=== PATIENT | male | born 1945 | race Caucasian/White ===

== ENCOUNTER 2022-03-15 20:04 | Inpatient (IN) ==
[2022-03-16] MEDS ORDERED: Naloxone 0.4 MG/ML INJ IVP PRN (00:55)
[2022-03-16] MEDS ORDERED: 0.9 % Sodium Chloride 1,000 ML ONE (01:00)
[2022-03-16 03:00] LABS: Basophils % 0.2 %; Eosinophils # 0.1 K/mcL (0.0-0.6); Eosinophils % 0.4 %; Hematocrit 21.6 % (37.5-50.1); Hemoglobin 6.8 g/dL (12.9-16.9); Immature Granulocytes % 4.2 % (0-4); Lymphocytes # 1.6 K/mcL (0.6-4.6); Lymphocytes % 7.1 %; Mean Corpuscular HGB Conc 31.5 g/dL (31.6-35.5); Mean Corpuscular Hemoglobin 33.7 pg (28.0-33.3); Mean Corpuscular Volume 106.9 fL (83.0-100.0); Mean Platelet Volume 9.5 fL (9.4-12.4); Monocytes % 3.3 %; Platelet Count 242 K/mcL (140-400); Red Blood Count 2.02 M/mcL (4.19-5.50); Red Cell Distribution Width 20.2 % (11.5-14.5); Segmented Neutrophils % 84.8 %; White Blood Count 22.7 K/mcL (4.3-11.1)
[2022-03-16] MEDS ORDERED: Vancomycin (wt based) 1,000 MG VIAL IVPB SCH (03:00)
[2022-03-16 03:12] LABS: INR 1.5; Prothrombin Time 16.6 Seconds (9.4-12.1)
[2022-03-16 03:15] LABS: Activated Partial Thrombo Time 33.4 Seconds (26.0-36.0)
[2022-03-16 03:20] LABS: Calcium 7.3 mg/dL (8.6-10.3); Phosphorous 1.1 mg/dL (2.7-4.5)
[2022-03-16 03:30] LABS: Basophils # 0.1 K/mcL (0.0-0.2); Monocytes # 0.8 K/mcL (0.0-1.3); Neutrophils # 19.3 K/mcL (1.6-8.9)
[2022-03-16 03:43] LABS: Anisocytosis 2+ (Not Present); Basophilic Stippling 1+ (Not Present); Macrocytosis Present (Not Present); Platelet Estimate Normal (Normal); Polychromasia 1+ (Not Present)
[2022-03-16] MEDS ORDERED: 0.9 % Sodium Chloride 250 ML IVC SCH (03:45)
[2022-03-16 03:48] LABS: Albumin 1.8 g/dL (3.5-5.7); Albumin/Globulin Ratio 0.7 (1.1-2.2); Bilirubin,Direct 0.2 mg/dL (0.0-0.2); Bilirubin,Indirect 0.2 mg/dL (0.0-1.0); Bilirubin,Total 0.4 mg/dL (0.3-1.0); Globulin 2.6 g/dL (2.4-3.5); Total Protein 4.4 g/dL (6.4-8.9)
[2022-03-16 03:57] LABS: VBG HCO3 26 mEq/L (21-27); VBG PCO2 47 mmHg (41-51); VBG PH 7.36 pH Units (7.32-7.42); VBG PO2 153 mmHg (25-50)
[2022-03-16] MEDS ORDERED: Melatonin 3 MG TABLET PO PRN (05:35)
[2022-03-16] MEDS ORDERED: Acetaminophen 325 MG TABLET PO PRN (05:35)
[2022-03-16] MEDS: Ondansetron 4 MG/2 ML VIAL IVP PRN (06:29)
[2022-03-16] MEDS ORDERED: Piperacillin/Tazobactam 3.375 GM in 0.9 % Sodium Chloride Mini Bag 100 ML IVPB SCH (08:00)
[2022-03-16 12:44] LABS: % Iron Saturation 26 % (20-55); Iron 34 mcg/dL (65-175); Transferrin 92 mg/dL (203-362)
[2022-03-16 13:03] LABS: Ferritin > 1500 ng/mL (20-250)
[2022-03-16 13:10] LABS: Folate > 22.3 ng/mL (3.0-16.0); Vitamin B12 703 pg/mL (250-1100)
[2022-03-16 13:36] LABS: Hepatitis B Surface Antibody < 3.10 mIU/mL
[2022-03-16 13:45] LABS: Hepatitis B Surface Antigen Nonreactive (Nonreactive)
[2022-03-16] MEDS ORDERED: *HR* Dextrose 50 % in Water (Syg) 50 ML SYRINGE IVP PRN (13:58)
[2022-03-16] MEDS ORDERED: D5% in Water 1,000 ML IVC PRN (13:58)
[2022-03-16] MEDS ORDERED: Dextrose Gel 15 GM/37.5 ML TUBE PO PRN ×2 (13:58)
[2022-03-16] MEDS ORDERED: Vancomycin 1,250 MG/262.5 ML IV.SOLN IVPB SCH (15:00)
[2022-03-16] MEDS: Torsemide 20 MG TABLET GTUBE SCH (16:14)
[2022-03-16] MEDS ORDERED: Torsemide 20 MG TABLET PO SCH (17:00)
[2022-03-16] MEDS: Insulin LISPRO 300 UNITS/3 ML VIAL SUBQ SCH (19:25)
[2022-03-16] MEDS: Budesonide/Formoterol 80/4.5 1 PUFF INH IH SCH (20:05)
[2022-03-16] MEDS: Piperacillin/Tazobactam 3.375 GM in 0.9 % Sodium Chloride Mini Bag 100 ML IVPB SCH (20:51)
[2022-03-16] MEDS: Melatonin 3 MG TABLET GTUBE PRN (20:52)
[2022-03-17] MEDS: Insulin LISPRO 300 UNITS/3 ML VIAL SUBQ SCH ×4 (00:36→17:45)
[2022-03-17 05:25] LABS: Hemoglobin 8.1 g/dL (12.9-16.9); Mean Platelet Volume 9.4 fL (9.4-12.4)
[2022-03-17 05:27] LABS: Hematocrit 25.1 % (37.5-50.1); Mean Corpuscular HGB Conc 32.3 g/dL (31.6-35.5); Mean Corpuscular Hemoglobin 32.9 pg (28.0-33.3); Platelet Count 245 K/mcL (140-400); Red Blood Count 2.46 M/mcL (4.19-5.50); White Blood Count 27.2 K/mcL (4.3-11.1)
[2022-03-17 05:44] LABS: Calcium 7.3 mg/dL (8.6-10.3); Potassium 3.8 mEq/L (3.5-5.1)
[2022-03-17 06:24] LABS: Eosinophils # 1.1 K/mcL (0.0-0.6); Lymphocytes # 1.1 K/mcL (0.6-4.6)
[2022-03-17 06:25] LABS: Anisocytosis 1+ (Not Present); Basophilic Stippling 1+ (Not Present); Toxic Granulation Present (Not Present)
[2022-03-17 06:26] LABS: Platelet Clumps Few (Not Present); Platelet Estimate Normal (Normal); Poikilocytosis 1+ (Not Present); Polychromasia 1+ (Not Present)
[2022-03-17] MEDS: Budesonide/Formoterol 80/4.5 1 PUFF INH IH SCH ×2 (07:30→20:24)
[2022-03-17] MEDS ORDERED: *HR* Amiodarone 200 MG TABLET PO SCH (09:00)
[2022-03-17] MEDS ORDERED: Metoprolol XL (24 HR) Succ 25 MG TAB.ER.24H PO SCH (09:00)
[2022-03-17] MEDS: Torsemide 20 MG TABLET GTUBE SCH ×2 (09:59→17:27)
[2022-03-17] MEDS: *HR* Amiodarone 200 MG TABLET GTUBE SCH (10:00)
[2022-03-17] MEDS: Piperacillin/Tazobactam 3.375 GM in 0.9 % Sodium Chloride Mini Bag 100 ML IVPB SCH (10:00)
[2022-03-17] MEDS: *HR* FentaNYL PATCH 12 MCG PATCH TD SCH (10:07)
[2022-03-17] MEDS ORDERED: Vancomycin 1,500 MG/265 ML IV.SOLN IVPB ONE ×2 (14:00→16:00)
[2022-03-17] MEDS ORDERED: Cefepime HCl 2,000 MG in 0.9 % Sodium Chloride Mini Bag 100 ML IVPB SCH (16:00)
[2022-03-17] MEDS: Ondansetron 4 MG/2 ML VIAL IVP PRN (17:43)
[2022-03-17] MEDS: Melatonin 3 MG TABLET GTUBE PRN (20:38)
[2022-03-17] MEDS: metroNIDAZOLE 500 MG TABLET GTUBE SCH (20:39)
[2022-03-17] MEDS: Cefepime HCl 2,000 MG in 0.9 % Sodium Chloride Mini Bag 100 ML IVPB SCH (20:39)
[2022-03-17] MEDS ORDERED: metroNIDAZOLE 500 MG TABLET PO SCH (21:00)
[2022-03-18] MEDS: Insulin LISPRO 300 UNITS/3 ML VIAL SUBQ SCH ×4 (00:12→17:03)
[2022-03-18 05:23] LABS: Hematocrit 26.7 % (37.5-50.1); Hemoglobin 8.4 g/dL (12.9-16.9); Mean Corpuscular HGB Conc 31.5 g/dL (31.6-35.5); Mean Corpuscular Hemoglobin 32.3 pg (28.0-33.3); Mean Corpuscular Volume 102.7 fL (83.0-100.0); Mean Platelet Volume 9.5 fL (9.4-12.4); Platelet Count 254 K/mcL (140-400); Red Cell Distribution Width 22.9 % (11.5-14.5); White Blood Count 24.8 K/mcL (4.3-11.1)
[2022-03-18 05:29] LABS: Calcium 7.3 mg/dL (8.6-10.3); Potassium 3.7 mEq/L (3.5-5.1)
[2022-03-18] MEDS: Cefepime HCl 2,000 MG in 0.9 % Sodium Chloride Mini Bag 100 ML IVPB SCH ×2 (07:44→19:42)
[2022-03-18] MEDS: Budesonide/Formoterol 80/4.5 1 PUFF INH IH SCH ×2 (07:45→21:45)
[2022-03-18] MEDS: metroNIDAZOLE 500 MG TABLET GTUBE SCH ×3 (07:46→19:43)
[2022-03-18] MEDS: Torsemide 20 MG TABLET GTUBE SCH ×2 (07:46→15:27)
[2022-03-18] MEDS: *HR* Amiodarone 200 MG TABLET GTUBE SCH (07:46)
[2022-03-18] MEDS: Ondansetron 4 MG/2 ML VIAL IVP PRN ×2 (13:46→22:15)
[2022-03-18] MEDS ORDERED: Vancomycin 1,250 MG/262.5 ML IV.SOLN IVPB ONE (15:28)
[2022-03-18 23:05] LABS: Calcium 7.3 mg/dL (8.6-10.3); Potassium 3.7 mEq/L (3.5-5.1)
[2022-03-18 23:19] LABS: Troponin I 0.06 ng/mL (< 0.04)
[2022-03-19 00:54] LABS: Basophils # 0.1 K/mcL (0.0-0.2); Basophils % 0.3 %; Eosinophils # 0.2 K/mcL (0.0-0.6); Eosinophils % 0.8 %; Hematocrit 25.7 % (37.5-50.1); Hemoglobin 8.1 g/dL (12.9-16.9); Immature Granulocytes % 4.4 % (0-4); Lymphocytes # 1.8 K/mcL (0.6-4.6); Lymphocytes % 7.3 %; Mean Corpuscular HGB Conc 31.5 g/dL (31.6-35.5); Mean Corpuscular Hemoglobin 32.8 pg (28.0-33.3); Mean Platelet Volume 9.4 fL (9.4-12.4); Monocytes # 0.9 K/mcL (0.0-1.3); Monocytes % 3.9 %; Neutrophils # 20.1 K/mcL (1.6-8.9); Nucleated Red Blood Cells 0.2 /100 WBC (0); Platelet Count 238 K/mcL (140-400); Red Blood Count 2.47 M/mcL (4.19-5.50); Red Cell Distribution Width 22.5 % (11.5-14.5); Segmented Neutrophils % 83.3 %; White Blood Count 24.1 K/mcL (4.3-11.1)
[2022-03-19] MEDS: Insulin LISPRO 300 UNITS/3 ML VIAL SUBQ SCH ×5 (00:55→23:24)
[2022-03-19 01:08] LABS: Calcium 7.2 mg/dL (8.6-10.3); Potassium 3.6 mEq/L (3.5-5.1)
[2022-03-19 07:28] LABS: Bilirubin,Urine Negative (Negative); Blood,Urine Moderate (Negative); Clarity,Urine Clear (Clear); Color,Urine Yellow (Yellow); Glucose,Urine (UA) Normal (Normal); Ketones,Urine Negative (Negative); Leukocyte Esterase,Urine Large (Negative); Nitrite,Urine Negative (Negative); Protein,Urine 100 mg/dL (Neg-Trace); Specific Gravity,Urine >= 1.030 (1.010-1.025); Urobilinogen,Urine Normal (Normal)
[2022-03-19 07:30] LABS: Creatinine,Urine 51 mg/dL
[2022-03-19 07:35] LABS: Bacteria,Urine Many per hpf (None-Few); WBC,Urine 50-100 per hpf (0-3)
[2022-03-19] MEDS: Budesonide/Formoterol 80/4.5 1 PUFF INH IH SCH ×2 (08:20→21:42)
[2022-03-19] MEDS: *HR* Amiodarone 200 MG TABLET GTUBE SCH (08:45)
[2022-03-19] MEDS: Torsemide 20 MG TABLET GTUBE SCH ×2 (08:45→15:11)
[2022-03-19] MEDS: Cefepime HCl 2,000 MG in 0.9 % Sodium Chloride Mini Bag 100 ML IVPB SCH ×2 (08:45→19:46)
[2022-03-19] MEDS: metroNIDAZOLE 500 MG TABLET GTUBE SCH ×3 (08:45→19:47)
[2022-03-19] MEDS ORDERED: Aspirin 81 MG TAB.CHEW PO SCH (09:45)
[2022-03-19] MEDS: Ondansetron 4 MG/2 ML VIAL IVP PRN ×2 (11:46→19:46)
[2022-03-19] MEDS ORDERED: *HR* OxyCODONE Immed Rel 5 MG TABLET PO PRN (16:00)
[2022-03-19] MEDS ORDERED: Metoclopramide 10 MG/2 ML VIAL IVP PRN (18:11)
[2022-03-19] MEDS: Insulin DETEMIR 100 UNIT/ML X5UNITS SUBQ SCH (20:08)
[2022-03-20] MEDS: Insulin LISPRO 300 UNITS/3 ML VIAL SUBQ SCH ×3 (05:57→18:15)
[2022-03-20 06:25] LABS: Basophils # 0.1 K/mcL (0.0-0.2); Basophils % 0.4 %; Eosinophils # 0.2 K/mcL (0.0-0.6); Eosinophils % 0.7 %; Hematocrit 26.7 % (37.5-50.1); Hemoglobin 8.3 g/dL (12.9-16.9); Immature Granulocytes % 3.8 % (0-4); Lymphocytes # 2.7 K/mcL (0.6-4.6); Lymphocytes % 10.9 %; Mean Corpuscular HGB Conc 31.1 g/dL (31.6-35.5); Mean Corpuscular Hemoglobin 32.7 pg (28.0-33.3); Mean Corpuscular Volume 105.1 fL (83.0-100.0); Mean Platelet Volume 9.7 fL (9.4-12.4); Neutrophils # 19.9 K/mcL (1.6-8.9); Nucleated Red Blood Cells 0.1 /100 WBC (0); Platelet Count 229 K/mcL (140-400); Red Blood Count 2.54 M/mcL (4.19-5.50); Red Cell Distribution Width 22.5 % (11.5-14.5); Segmented Neutrophils % 80.2 %; White Blood Count 24.8 K/mcL (4.3-11.1)
[2022-03-20 06:49] LABS: Calcium 7.6 mg/dL (8.6-10.3); Potassium 3.7 mEq/L (3.5-5.1)
[2022-03-20] MEDS: Budesonide/Formoterol 80/4.5 1 PUFF INH IH SCH ×2 (07:24→20:05)
[2022-03-20] MEDS ORDERED: *HR* OxyCODONE Immed Rel 5 MG TABLET GTUBE PRN (08:38)
[2022-03-20] MEDS: Torsemide 20 MG TABLET GTUBE SCH ×2 (09:32→18:23)
[2022-03-20] MEDS: metroNIDAZOLE 500 MG TABLET GTUBE SCH (09:32)
[2022-03-20] MEDS: *HR* Amiodarone 200 MG TABLET GTUBE SCH (09:32)
[2022-03-20] MEDS: Ondansetron 4 MG/2 ML VIAL IVP PRN (09:33)
[2022-03-20] MEDS: Aspirin 81 MG TAB.CHEW GTUBE SCH (09:33)
[2022-03-20] MEDS: *HR* FentaNYL PATCH 12 MCG PATCH TD SCH (11:41)
[2022-03-20] MEDS: *HR* OxyCODONE Immed Rel 5 MG TABLET GTUBE PRN (15:05)
[2022-03-20] MEDS ORDERED: Cefepime HCl 1,000 MG in 0.9 % Sodium Chloride 10 ML IVP SCH (18:00)
[2022-03-20] MEDS: Insulin DETEMIR 100 UNIT/ML X5UNITS SUBQ SCH (22:26)
[2022-03-21] MEDS: Insulin LISPRO 300 UNITS/3 ML VIAL SUBQ SCH ×4 (02:45→18:32)
[2022-03-21] MEDS: *HR* OxyCODONE Immed Rel 5 MG TABLET GTUBE PRN ×4 (06:18→22:06)
[2022-03-21] MEDS: Budesonide/Formoterol 80/4.5 1 PUFF INH IH SCH ×2 (08:08→20:16)
[2022-03-21] MEDS: Aspirin 81 MG TAB.CHEW GTUBE SCH (08:44)
[2022-03-21] MEDS: *HR* Amiodarone 200 MG TABLET GTUBE SCH (08:44)
[2022-03-21] MEDS: Torsemide 20 MG TABLET GTUBE SCH ×2 (08:45→18:31)
[2022-03-21 10:02] LABS: Hematocrit 29.2 % (37.5-50.1); Hemoglobin 9.4 g/dL (12.9-16.9); Mean Corpuscular HGB Conc 32.2 g/dL (31.6-35.5); Mean Corpuscular Hemoglobin 32.8 pg (28.0-33.3); Mean Corpuscular Volume 101.7 fL (83.0-100.0); Mean Platelet Volume 10.1 fL (9.4-12.4); Nucleated Red Blood Cells 0.3 /100 WBC (0); Platelet Count 242 K/mcL (140-400); Red Blood Count 2.87 M/mcL (4.19-5.50); Red Cell Distribution Width 22.7 % (11.5-14.5)
[2022-03-21 10:17] LABS: Albumin 1.9 g/dL (3.5-5.7); Albumin/Globulin Ratio 0.6 (1.1-2.2); Bilirubin,Total 0.5 mg/dL (0.3-1.0); Calcium 7.7 mg/dL (8.6-10.3); Potassium 3.9 mEq/L (3.5-5.1); Total Protein 4.9 g/dL (6.4-8.9)
[2022-03-21 10:39] LABS: White Blood Count 30.8 K/mcL (4.3-11.1)
[2022-03-21 10:43] LABS: Lymphocytes # 2.8 K/mcL (0.6-4.6); Monocytes # 0.6 K/mcL (0.0-1.3); Neutrophils # 27.1 K/mcL (1.6-8.9)
[2022-03-21 10:44] LABS: Platelet Estimate Normal (Normal); Polychromasia 1+ (Not Present); Toxic Granulation Present (Not Present)
[2022-03-21 10:46] LABS: Anisocytosis 1+ (Not Present); Poikilocytosis 1+ (Not Present)
[2022-03-21 10:47] LABS: Total Volume 24 Hour,Urine 0.59 Liters (0.80-1.80)
[2022-03-21 11:54] LABS: Total Volume 24 Hour,Urine 0.59 Liters (0.80-1.80)
[2022-03-21] MEDS: Ondansetron 4 MG/2 ML VIAL IVP PRN (15:12)
[2022-03-21] MEDS: Melatonin 3 MG TABLET GTUBE PRN (22:06)
[2022-03-21] MEDS: Insulin DETEMIR 100 UNIT/ML X5UNITS SUBQ SCH (22:16)
[2022-03-22] MEDS: Ondansetron 4 MG/2 ML VIAL IVP PRN ×2 (00:53→10:26)
[2022-03-22] MEDS ORDERED: Prochlorperazine 10 MG/2 ML VIAL IVP ONE (03:30)
[2022-03-22] MEDS: Insulin LISPRO 300 UNITS/3 ML VIAL SUBQ SCH ×4 (03:43→17:09)
[2022-03-22] MEDS: *HR* OxyCODONE Immed Rel 5 MG TABLET GTUBE PRN ×5 (03:50→21:15)
[2022-03-22] MEDS: Budesonide/Formoterol 80/4.5 1 PUFF INH IH SCH ×2 (07:38→22:17)
[2022-03-22] MEDS: Metoprolol XL (24 HR) Succ 25 MG TAB.ER.24H PO SCH (07:59)
[2022-03-22] MEDS: Aspirin 81 MG TAB.CHEW GTUBE SCH (08:00)
[2022-03-22] MEDS: Torsemide 20 MG TABLET GTUBE SCH ×2 (08:00→17:08)
[2022-03-22] MEDS: *HR* Amiodarone 200 MG TABLET GTUBE SCH (08:00)
[2022-03-22 10:06] LABS: Hematocrit 26.1 % (37.5-50.1); Hemoglobin 8.1 g/dL (12.9-16.9); Mean Corpuscular Hemoglobin 32.7 pg (28.0-33.3); Mean Corpuscular Volume 105.2 fL (83.0-100.0); Mean Platelet Volume 10.4 fL (9.4-12.4); Nucleated Red Blood Cells 0.3 /100 WBC (0); Platelet Count 198 K/mcL (140-400); Red Blood Count 2.48 M/mcL (4.19-5.50); Red Cell Distribution Width 22.9 % (11.5-14.5); White Blood Count 26.5 K/mcL (4.3-11.1)
[2022-03-22 10:34] LABS: Albumin 1.7 g/dL (3.5-5.7); Albumin/Globulin Ratio 0.7 (1.1-2.2); Bilirubin,Total 0.4 mg/dL (0.3-1.0); Calcium 7.4 mg/dL (8.6-10.3); Globulin 2.4 g/dL (2.4-3.5); Potassium 4.2 mEq/L (3.5-5.1); Total Protein 4.1 g/dL (6.4-8.9)
[2022-03-22 10:56] LABS: Lymphocytes # 2.4 K/mcL (0.6-4.6); Neutrophils # 23.6 K/mcL (1.6-8.9); Platelet Estimate Normal (Normal)
[2022-03-22 10:57] LABS: Macrocytosis Present (Not Present); Toxic Granulation Present (Not Present)
[2022-03-22 10:58] LABS: Anisocytosis 2+ (Not Present)
[2022-03-22] MEDS: Insulin DETEMIR 100 UNIT/ML X5UNITS SUBQ SCH (20:16)
[2022-03-23] MEDS: Insulin LISPRO 300 UNITS/3 ML VIAL SUBQ SCH ×4 (00:02→17:48)
[2022-03-23] MEDS: *HR* OxyCODONE Immed Rel 5 MG TABLET GTUBE PRN ×2 (01:39→06:03)
[2022-03-23] MEDS: Budesonide/Formoterol 80/4.5 1 PUFF INH IH SCH ×2 (07:56→20:10)
[2022-03-23 10:01] LABS: Red Blood Count 2.58 M/mcL (4.19-5.50)
[2022-03-23 10:02] LABS: Hematocrit 26.9 % (37.5-50.1); Hemoglobin 8.6 g/dL (12.9-16.9); Mean Corpuscular Hemoglobin 33.3 pg (28.0-33.3); Mean Corpuscular Volume 104.3 fL (83.0-100.0); Mean Platelet Volume 9.9 fL (9.4-12.4); Platelet Count 230 K/mcL (140-400); Red Cell Distribution Width 22.9 % (11.5-14.5); White Blood Count 26.5 K/mcL (4.3-11.1)
[2022-03-23] MEDS: Torsemide 20 MG TABLET GTUBE SCH ×2 (10:10→18:18)
[2022-03-23] MEDS: Aspirin 81 MG TAB.CHEW GTUBE SCH (10:10)
[2022-03-23] MEDS: Metoprolol XL (24 HR) Succ 25 MG TAB.ER.24H PO SCH ×2 (10:15→13:11)
[2022-03-23] MEDS: *HR* Amiodarone 200 MG TABLET GTUBE SCH (10:16)
[2022-03-23] MEDS ORDERED: *HR* Midazolam HCl 2 MG/2 ML VIAL ONE (10:26)
[2022-03-23] MEDS ORDERED: *HR* FentaNYL (PF) 100 MCG/2 ML VIAL ONE (10:26)
[2022-03-23] MEDS ORDERED: *HR* Propofol 200 MG/20 ML VIAL IVP ONE (10:27)
[2022-03-23 10:29] LABS: Calcium 7.7 mg/dL (8.6-10.3)
[2022-03-23] MEDS ORDERED: Lidocaine -MPF 2% 5 ML VIAL ONE (10:30)
[2022-03-23] MEDS ORDERED: Albumin Human 5% 0 GM/0 ML IV.SOLN ONE (10:33)
[2022-03-23] MEDS ORDERED: Promethazine 6.25 MG in Water for inj. (sterile) 20 ML IVPB PRN (10:44)
[2022-03-23] MEDS ORDERED: *HR* HYDROmorphone PF 0.5 MG/0.5 ML SYRINGE IVP PRN (10:44)
[2022-03-23] MEDS ORDERED: *HR* OxyCODONE Immed Rel 5 MG TABLET PO PRN (10:44)
[2022-03-23] MEDS ORDERED: Ondansetron 4 MG/2 ML VIAL IVP PRN (10:44)
[2022-03-23] MEDS ORDERED: Vancomycin 1,000 MG VIAL ONE (10:58)
[2022-03-23] MEDS: *HR* FentaNYL PATCH 12 MCG PATCH TD SCH (13:28)
[2022-03-23] MEDS ORDERED: Vancomycin 1,000 MG, Sodium Chloride IRRigation 1,000 ML IR ONE (15:40)
[2022-03-23] MEDS ORDERED: Tolvaptan 15 MG TABLET GTUBE ONE (16:30)
[2022-03-23] MEDS: Lactobacillus 1 EACH CAP.SPRINK GTUBE SCH (20:00)
[2022-03-23] MEDS: Insulin DETEMIR 100 UNIT/ML X5UNITS SUBQ SCH (20:04)
[2022-03-24] MEDS: Insulin LISPRO 300 UNITS/3 ML VIAL SUBQ SCH ×4 (00:02→19:00)
[2022-03-24 05:04] LABS: Hematocrit 25.5 % (37.5-50.1); Hemoglobin 8.2 g/dL (12.9-16.9); Mean Corpuscular HGB Conc 32.2 g/dL (31.6-35.5); Mean Corpuscular Hemoglobin 33.5 pg (28.0-33.3); Mean Corpuscular Volume 104.1 fL (83.0-100.0); Mean Platelet Volume 10.2 fL (9.4-12.4); Platelet Count 224 K/mcL (140-400); Red Blood Count 2.45 M/mcL (4.19-5.50); Red Cell Distribution Width 23.3 % (11.5-14.5); White Blood Count 22.4 K/mcL (4.3-11.1)
[2022-03-24 05:24] LABS: Albumin 1.9 g/dL (3.5-5.7); Albumin/Globulin Ratio 0.7 (1.1-2.2); Bilirubin,Total 0.4 mg/dL (0.3-1.0); Calcium 7.7 mg/dL (8.6-10.3); Globulin 2.7 g/dL (2.4-3.5); Magnesium 2.3 mg/dL (1.6-2.6); Phosphorous 2.3 mg/dL (2.7-4.5); Potassium 3.3 mEq/L (3.5-5.1); Total Protein 4.6 g/dL (6.4-8.9)
[2022-03-24] MEDS: Ondansetron 4 MG/2 ML VIAL IVP PRN ×2 (05:42→22:24)
[2022-03-24] MEDS: Budesonide/Formoterol 80/4.5 1 PUFF INH IH SCH ×2 (07:55→22:21)
[2022-03-24] MEDS: Aspirin 81 MG TAB.CHEW GTUBE SCH (09:23)
[2022-03-24] MEDS: Torsemide 20 MG TABLET GTUBE SCH (09:23)
[2022-03-24] MEDS: Lactobacillus 1 EACH CAP.SPRINK GTUBE SCH ×2 (09:23→20:59)
[2022-03-24] MEDS: *HR* Amiodarone 200 MG TABLET GTUBE SCH (09:23)
[2022-03-24] MEDS ORDERED: Tolvaptan 15 MG TABLET PO ONE (11:58)
[2022-03-24 14:41] LABS: Calcium 7.8 mg/dL (8.6-10.3); Potassium 3.9 mEq/L (3.5-5.1)
[2022-03-24] MEDS: Furosemide 40 MG TABLET PO SCH (18:59)
[2022-03-24] MEDS: Insulin DETEMIR 100 UNIT/ML X5UNITS SUBQ SCH (20:58)
[2022-03-25] MEDS: Insulin LISPRO 300 UNITS/3 ML VIAL SUBQ SCH ×4 (00:37→18:10)
[2022-03-25 02:02] LABS: Hematocrit 27.2 % (37.5-50.1); Hemoglobin 8.6 g/dL (12.9-16.9); Mean Corpuscular HGB Conc 31.6 g/dL (31.6-35.5); Mean Corpuscular Hemoglobin 32.8 pg (28.0-33.3); Mean Corpuscular Volume 103.8 fL (83.0-100.0); Mean Platelet Volume 10.1 fL (9.4-12.4); Platelet Count 215 K/mcL (140-400); Red Blood Count 2.62 M/mcL (4.19-5.50); Red Cell Distribution Width 23.3 % (11.5-14.5); White Blood Count 20.4 K/mcL (4.3-11.1)
[2022-03-25 02:16] LABS: Calcium 7.8 mg/dL (8.6-10.3); Potassium 3.3 mEq/L (3.5-5.1)
[2022-03-25] MEDS ORDERED: Potassium Chloride Elixir 20 MEQ/15 ML UDC GTUBE ONE (07:48)
[2022-03-25] MEDS: Budesonide/Formoterol 80/4.5 1 PUFF INH IH SCH ×2 (07:53→19:47)
[2022-03-25] MEDS: Lactobacillus 1 EACH CAP.SPRINK GTUBE SCH ×2 (10:46→19:30)
[2022-03-25] MEDS: Furosemide 40 MG TABLET PO SCH ×2 (10:46→16:06)
[2022-03-25] MEDS: Aspirin 81 MG TAB.CHEW GTUBE SCH (10:46)
[2022-03-25] MEDS: *HR* Amiodarone 200 MG TABLET GTUBE SCH (10:47)
[2022-03-25] MEDS: Insulin DETEMIR 100 UNIT/ML X5UNITS SUBQ SCH (19:30)
[2022-03-26] MEDS: Insulin LISPRO 300 UNITS/3 ML VIAL SUBQ SCH ×4 (00:36→17:39)
[2022-03-26 02:01] LABS: Hematocrit 26.7 % (37.5-50.1); Hemoglobin 8.5 g/dL (12.9-16.9); Mean Corpuscular HGB Conc 31.8 g/dL (31.6-35.5); Mean Corpuscular Hemoglobin 33.7 pg (28.0-33.3); Mean Platelet Volume 9.7 fL (9.4-12.4); Platelet Count 179 K/mcL (140-400); Red Blood Count 2.52 M/mcL (4.19-5.50); Red Cell Distribution Width 23.2 % (11.5-14.5)
[2022-03-26 02:43] LABS: Calcium 7.9 mg/dL (8.6-10.3); Phosphorous 2.4 mg/dL (2.7-4.5); Potassium 3.3 mEq/L (3.5-5.1)
[2022-03-26] MEDS: Budesonide/Formoterol 80/4.5 1 PUFF INH IH SCH ×2 (10:27→20:01)
[2022-03-26] MEDS: Aspirin 81 MG TAB.CHEW GTUBE SCH (11:01)
[2022-03-26] MEDS: *HR* Amiodarone 200 MG TABLET GTUBE SCH (11:01)
[2022-03-26] MEDS: Lactobacillus 1 EACH CAP.SPRINK GTUBE SCH ×2 (11:01→20:44)
[2022-03-26] MEDS: *HR* FentaNYL PATCH 12 MCG PATCH TD SCH (11:02)
[2022-03-26] MEDS: Furosemide 40 MG TABLET PO SCH ×2 (11:02→17:39)
[2022-03-26] MEDS: Ondansetron 4 MG/2 ML VIAL IVP PRN (17:56)
[2022-03-26] MEDS: Insulin DETEMIR 100 UNIT/ML X5UNITS SUBQ SCH (20:44)
[2022-03-26] MEDS ORDERED: Prochlorperazine 10 MG/2 ML VIAL IVP ONE (21:39)
[2022-03-27] MEDS: Insulin LISPRO 300 UNITS/3 ML VIAL SUBQ SCH ×4 (00:11→17:08)
[2022-03-27 03:00] LABS: Basophils % 0.2 %; Eosinophils # 0.1 K/mcL (0.0-0.6); Eosinophils % 0.8 %; Hematocrit 27.4 % (37.5-50.1); Hemoglobin 8.6 g/dL (12.9-16.9); Immature Granulocytes % 1.8 % (0-4); Lymphocytes # 1.6 K/mcL (0.6-4.6); Mean Corpuscular HGB Conc 31.4 g/dL (31.6-35.5); Mean Corpuscular Hemoglobin 33.5 pg (28.0-33.3); Mean Corpuscular Volume 106.6 fL (83.0-100.0); Mean Platelet Volume 10.5 fL (9.4-12.4); Monocytes # 0.7 K/mcL (0.0-1.3); Monocytes % 4.2 %; Neutrophils # 13.1 K/mcL (1.6-8.9); Nucleated Red Blood Cells 0.2 /100 WBC (0); Platelet Count 165 K/mcL (140-400); Red Blood Count 2.57 M/mcL (4.19-5.50); Red Cell Distribution Width 23.4 % (11.5-14.5); White Blood Count 15.8 K/mcL (4.3-11.1)
[2022-03-27 03:15] LABS: Potassium 3.5 mEq/L (3.5-5.1)
[2022-03-27 03:42] LABS: Anisocytosis 3+ (Not Present); Burr Cells 1+ (Not Present); Platelet Estimate Normal (Normal)
[2022-03-27] MEDS: Ondansetron 4 MG/2 ML VIAL IVP PRN (05:32)
[2022-03-27] MEDS: Budesonide/Formoterol 80/4.5 1 PUFF INH IH SCH ×2 (07:23→19:56)
[2022-03-27] MEDS: Lactobacillus 1 EACH CAP.SPRINK GTUBE SCH ×2 (09:06→21:47)
[2022-03-27] MEDS: *HR* Amiodarone 200 MG TABLET GTUBE SCH (09:06)
[2022-03-27] MEDS: Aspirin 81 MG TAB.CHEW GTUBE SCH (09:06)
[2022-03-27] MEDS: Furosemide 40 MG TABLET PO SCH (09:07)
[2022-03-27 09:33] LABS: Cystatin C 3.8 mg/L (0.5-1.2)
[2022-03-27] MEDS: Furosemide Oral Soln 40 MG/4 ML UDC GTUBE SCH (17:07)
[2022-03-27] MEDS: Insulin DETEMIR 100 UNIT/ML X5UNITS SUBQ SCH (21:48)
[2022-03-28] MEDS: Insulin LISPRO 300 UNITS/3 ML VIAL SUBQ SCH ×4 (00:59→17:47)
[2022-03-28 05:14] LABS: Magnesium 2.3 mg/dL (1.6-2.6); Phosphorous 2.1 mg/dL (2.7-4.5)
[2022-03-28 05:19] LABS: Potassium 4.1 mEq/L (3.5-5.1)
[2022-03-28] MEDS: Budesonide/Formoterol 80/4.5 1 PUFF INH IH SCH ×2 (07:49→20:39)
[2022-03-28] MEDS: Lactobacillus 1 EACH CAP.SPRINK GTUBE SCH ×2 (09:16→21:17)
[2022-03-28] MEDS: *HR* Amiodarone 200 MG TABLET GTUBE SCH (09:16)
[2022-03-28] MEDS: Furosemide Oral Soln 40 MG/4 ML UDC GTUBE SCH ×2 (09:16→17:47)
[2022-03-28] MEDS: Potassium Chloride Elixir 20 MEQ/15 ML UDC GTUBE SCH (09:17)
[2022-03-28] MEDS: Aspirin 81 MG TAB.CHEW GTUBE SCH (09:17)
[2022-03-28 10:03] LABS: Basophils % 0.2 %; Eosinophils # 0.1 K/mcL (0.0-0.6); Eosinophils % 0.8 %; Hematocrit 28.5 % (37.5-50.1); Hemoglobin 8.7 g/dL (12.9-16.9); Immature Granulocytes % 1.7 % (0-4); Lymphocytes # 2.1 K/mcL (0.6-4.6); Lymphocytes % 16.2 %; Mean Corpuscular HGB Conc 30.5 g/dL (31.6-35.5); Mean Corpuscular Hemoglobin 32.8 pg (28.0-33.3); Mean Corpuscular Volume 107.5 fL (83.0-100.0); Mean Platelet Volume 10.7 fL (9.4-12.4); Monocytes # 0.7 K/mcL (0.0-1.3); Monocytes % 5.6 %; Neutrophils # 9.9 K/mcL (1.6-8.9); Nucleated Red Blood Cells 0.2 /100 WBC (0); Platelet Count 176 K/mcL (140-400); Red Blood Count 2.65 M/mcL (4.19-5.50); Red Cell Distribution Width 23.7 % (11.5-14.5); Segmented Neutrophils % 75.5 %; White Blood Count 13.1 K/mcL (4.3-11.1)
[2022-03-28 10:35] LABS: Anisocytosis 1+ (Not Present); Platelet Estimate Normal (Normal)
[2022-03-28] MEDS: *HR* FentaNYL PATCH 25 MCG PATCH TD SCH (11:27)
[2022-03-28] MEDS: *HR* Heparin 5,000 UNIT/ML VIAL SQ SCH (21:17)
[2022-03-28] MEDS: Melatonin 3 MG TABLET GTUBE PRN (21:17)
[2022-03-28] MEDS: Insulin DETEMIR 100 UNIT/ML X5UNITS SUBQ SCH (21:34)
[2022-03-29] MEDS: Insulin LISPRO 300 UNITS/3 ML VIAL SUBQ SCH ×4 (05:03→17:44)
[2022-03-29] MEDS: *HR* Heparin 5,000 UNIT/ML VIAL SQ SCH ×3 (05:03→20:58)
[2022-03-29 06:06] LABS: Basophils % 0.1 %; Eosinophils # 0.1 K/mcL (0.0-0.6); Eosinophils % 0.9 %; Hemoglobin 8.3 g/dL (12.9-16.9); Immature Granulocytes % 0.9 % (0-4); Lymphocytes % 15.8 %; Mean Corpuscular HGB Conc 30.7 g/dL (31.6-35.5); Mean Corpuscular Hemoglobin 33.5 pg (28.0-33.3); Mean Corpuscular Volume 108.9 fL (83.0-100.0); Mean Platelet Volume 10.6 fL (9.4-12.4); Monocytes # 0.7 K/mcL (0.0-1.3); Monocytes % 5.3 %; Neutrophils # 9.8 K/mcL (1.6-8.9); Platelet Count 154 K/mcL (140-400); Red Blood Count 2.48 M/mcL (4.19-5.50); Red Cell Distribution Width 23.1 % (11.5-14.5); White Blood Count 12.7 K/mcL (4.3-11.1)
[2022-03-29 06:51] LABS: Anisocytosis 2+ (Not Present)
[2022-03-29 06:52] LABS: Platelet Estimate Normal (Normal)
[2022-03-29] MEDS: Budesonide/Formoterol 80/4.5 1 PUFF INH IH SCH ×2 (07:43→22:46)
[2022-03-29] MEDS: Furosemide Oral Soln 40 MG/4 ML UDC GTUBE SCH ×2 (08:45→17:44)
[2022-03-29] MEDS: Lactobacillus 1 EACH CAP.SPRINK GTUBE SCH ×2 (08:45→20:55)
[2022-03-29] MEDS: Aspirin 81 MG TAB.CHEW GTUBE SCH (08:45)
[2022-03-29] MEDS: *HR* Amiodarone 200 MG TABLET GTUBE SCH (08:45)
[2022-03-29] MEDS: Ondansetron 4 MG/2 ML VIAL IVP PRN (08:53)
[2022-03-29] MEDS: Potassium Chloride Elixir 20 MEQ/15 ML UDC GTUBE SCH (11:46)
[2022-03-29] MEDS: Melatonin 3 MG TABLET GTUBE PRN (20:55)
[2022-03-29] MEDS: Insulin DETEMIR 100 UNIT/ML X5UNITS SUBQ SCH (20:56)
[2022-03-30] MEDS: Insulin LISPRO 300 UNITS/3 ML VIAL SUBQ SCH ×5 (00:32→23:53)
[2022-03-30 04:02] LABS: Basophils % 0.2 %; Eosinophils # 0.1 K/mcL (0.0-0.6); Hematocrit 26.9 % (37.5-50.1); Hemoglobin 7.8 g/dL (12.9-16.9); Lymphocytes # 2.1 K/mcL (0.6-4.6); Lymphocytes % 17.2 %; Mean Corpuscular Hemoglobin 32.5 pg (28.0-33.3); Mean Corpuscular Volume 112.1 fL (83.0-100.0); Mean Platelet Volume 11.1 fL (9.4-12.4); Monocytes # 0.6 K/mcL (0.0-1.3); Neutrophils # 9.4 K/mcL (1.6-8.9); Nucleated Red Blood Cells 0.2 /100 WBC (0); Platelet Count 173 K/mcL (140-400); Red Cell Distribution Width 23.2 % (11.5-14.5); Segmented Neutrophils % 75.6 %; White Blood Count 12.4 K/mcL (4.3-11.1)
[2022-03-30 04:29] LABS: Calcium 8.1 mg/dL (8.6-10.3); Magnesium 2.4 mg/dL (1.6-2.6); Phosphorous 3.6 mg/dL (2.7-4.5); Potassium 5.6 mEq/L (3.5-5.1)
[2022-03-30 05:22] LABS: Acanthocytes 2+ (Not Present); Macrocytosis Present (Not Present); Platelet Estimate Normal (Normal)
[2022-03-30] MEDS ORDERED: 0.9 % Sodium Chloride 500 ML IVC ONE (06:03)
[2022-03-30] MEDS: *HR* Heparin 5,000 UNIT/ML VIAL SQ SCH ×3 (06:17→22:35)
[2022-03-30] MEDS: Budesonide/Formoterol 80/4.5 1 PUFF INH IH SCH ×2 (08:04→20:10)
[2022-03-30 09:17] LABS: Cystatin C 3.7 mg/L (0.5-1.2)
[2022-03-30] MEDS: Aspirin 81 MG TAB.CHEW GTUBE SCH (11:04)
[2022-03-30] MEDS: Lactobacillus 1 EACH CAP.SPRINK GTUBE SCH ×2 (11:04→22:34)
[2022-03-30] MEDS: Furosemide Oral Soln 40 MG/4 ML UDC GTUBE SCH ×2 (11:05→16:17)
[2022-03-30] MEDS: *HR* Amiodarone 200 MG TABLET GTUBE SCH (11:05)
[2022-03-30] MEDS: Insulin DETEMIR 100 UNIT/ML X5UNITS SUBQ SCH ×2 (11:05→21:48)
[2022-03-30] MEDS ORDERED: Acetaminophen IV 1,000 MG/100 ML BAG IVPB ONE (12:09)
[2022-03-30 12:24] LABS: Calcium 7.9 mg/dL (8.6-10.3)
[2022-03-30] MEDS: SODIUM ZIRCONIUM CYCLOSILICATE 5 GM POWD.PACK PO SCH ×2 (12:38→22:00)
[2022-03-30] MEDS: Doxycycline 100 MG in 0.9 % Sodium Chloride Mini Bag 100 ML IVPB SCH ×2 (13:37→20:25)
[2022-03-30 14:49] LABS: Adenovirus Not Detected (Not Detect); Coronavirus 229E Not Detected (Not Detect); Coronavirus HKU1 Not Detected (Not Detect); Coronavirus NL63 Not Detected (Not Detect); Coronavirus OC43 Not Detected (Not Detect); Human Metapneumovirus Not Detected (Not Detect); Human Rhinovirus/Enterovirus Not Detected (Not Detect); Influenza A Subtype 2009 H1 Not Detected (Not Detect); Influenza B Not Detected (Not Detect); Parainfluenza Virus 1 Not Detected (Not Detect); Parainfluenza Virus 2 Not Detected (Not Detect); Parainfluenza Virus 3 Not Detected (Not Detect); Parainfluenza Virus 4 Not Detected (Not Detect)
[2022-03-30 14:50] LABS: Bordetella Pertussis Not Detected (Not Detect); Chlamydophila pneumoniae Not Detected (Not Detect); Mycoplasma pneumoniae Not Detected (Not Detect); Respiratory Syncytial Virus Not Detected (Not Detect)
[2022-03-30 14:51] LABS: SARS-CoV-2 DETECTED (Not Detect)
[2022-03-30 15:02] LABS: Bilirubin,Urine Negative (Negative); Blood,Urine Moderate (Negative); Clarity,Urine Turbid (Clear); Color,Urine Yellow (Yellow); Glucose,Urine (UA) Normal (Normal); Ketones,Urine 15 mg/dL (Negative); Leukocyte Esterase,Urine Large (Negative); Nitrite,Urine Negative (Negative); Protein,Urine >=300 mg/dL (Neg-Trace); Specific Gravity,Urine >= 1.030 (1.010-1.025); Urobilinogen,Urine Normal (Normal)
[2022-03-30 15:06] LABS: Bacteria,Urine Moderate per hpf (None-Few); WBC,Urine TNTC per hpf (0-3)
[2022-03-30 15:07] LABS: Budding Yeast,Urine Moderate per hpf (None Seen)
[2022-03-30 15:08] LABS: Squamous Epithelial Cell,Urine Few per hpf (None-Few)
[2022-03-30] MEDS ORDERED: Furosemide 40 MG/4 ML VIAL IVP ONE (18:18)
[2022-03-30] MEDS ORDERED: Albumin 25% 25gram/100mL 25 GM/100 ML IV.SOLN IVPB ONE (18:22)
[2022-03-30 18:56] LABS: ABG Base Excess -7 mEq/L (-2 to 3); ABG HCO3 26 mEq/L (21-27); ABG Oxygen Saturation 67 % (95-98); ABG PCO2 110 mmHg (35-45); ABG PH 6.98 pH Units (7.32-7.45); ABG PO2 55 mmHg (85-104); ABG TCO2 29 mEq/L (20-26)
[2022-03-31 03:47] LABS: Albumin 2.6 g/dL (3.5-5.7); Albumin/Globulin Ratio 0.9 (1.1-2.2); Bilirubin,Direct 0.1 mg/dL (0.0-0.2); Bilirubin,Indirect 0.3 mg/dL (0.0-1.0); Bilirubin,Total 0.4 mg/dL (0.3-1.0); Magnesium 2.6 mg/dL (1.6-2.6); Phosphorous 5.5 mg/dL (2.7-4.5); Total Protein 5.6 g/dL (6.4-8.9)
[2022-03-31 03:54] LABS: Hematocrit 25.7 % (37.5-50.1); Hemoglobin 7.7 g/dL (12.9-16.9); Mean Corpuscular Hemoglobin 33.2 pg (28.0-33.3); Mean Corpuscular Volume 110.8 fL (83.0-100.0); Mean Platelet Volume 11.2 fL (9.4-12.4); Platelet Count 149 K/mcL (140-400); Red Blood Count 2.32 M/mcL (4.19-5.50); Red Cell Distribution Width 21.9 % (11.5-14.5)
[2022-03-31 04:06] LABS: Calcium 8.2 mg/dL (8.6-10.3)
[2022-03-31] MEDS ORDERED: Calcium Gluconate 1gm/50mL 1 GM/50 ML BAG IVPB ONE (04:11)
[2022-03-31] MEDS ORDERED: Insulin Human Regular 10 UNIT in 0.9 % Sodium Chloride 10 ML IV ONE (04:11)
[2022-03-31] MEDS ORDERED: *HR* Dextrose 50 % in Water (Syg) 50 ML SYRINGE IVP ONE (04:11)
[2022-03-31 04:14] LABS: White Blood Count 20.1 K/mcL (4.3-11.1)
[2022-03-31 04:45] LABS: ABG Base Excess -3 mEq/L (-2 to 3); ABG HCO3 24 mEq/L (21-27); ABG Oxygen Saturation 100 % (95-98); ABG PCO2 46 mmHg (35-45); ABG PH 7.32 pH Units (7.32-7.45); ABG PO2 405 mmHg (85-104); ABG TCO2 25 mEq/L (20-26); Blood Gas Modality avaps; Blood Gas VT 500 cc
[2022-03-31] MEDS: Doxycycline 100 MG in 0.9 % Sodium Chloride Mini Bag 100 ML IVPB SCH ×2 (04:56→17:58)
[2022-03-31] MEDS: SODIUM ZIRCONIUM CYCLOSILICATE 5 GM POWD.PACK PO SCH ×3 (04:56→14:06)
[2022-03-31] MEDS: *HR* Heparin 5,000 UNIT/ML VIAL SQ SCH ×3 (04:57→22:50)
[2022-03-31 05:30] LABS: Anisocytosis 1+ (Not Present); Lymphocytes # 1.6 K/mcL (0.6-4.6); Neutrophils # 18.5 K/mcL (1.6-8.9)
[2022-03-31 05:31] LABS: Platelet Estimate Normal (Normal)
[2022-03-31] MEDS: Insulin LISPRO 300 UNITS/3 ML VIAL SUBQ SCH (05:36)
[2022-03-31] MEDS: Budesonide/Formoterol 80/4.5 1 PUFF INH IH SCH ×2 (07:35→20:33)
[2022-03-31] MEDS ORDERED: *HR* Dextrose 50 % in Water (Syg) 50 ML SYRINGE IVP PRN (07:44)
[2022-03-31] MEDS ORDERED: Furosemide 40 MG/4 ML VIAL IVP SCH (09:00)
[2022-03-31] MEDS: D10% in Water 500 ML IVC SCH ×3 (09:05→20:27)
[2022-03-31] MEDS: Calcium Gluconate 1gm/50mL 1 GM/50 ML BAG IVPB SCH ×2 (09:06→10:42)
[2022-03-31] MEDS: Levothyroxine Sodium 100 MCG VIAL IVP SCH (09:16)
[2022-03-31] MEDS: *HR* FentaNYL PATCH 25 MCG PATCH TD SCH (09:16)
[2022-03-31] MEDS: *HR* Amiodarone 200 MG TABLET GTUBE SCH (09:17)
[2022-03-31] MEDS: Lactobacillus 1 EACH CAP.SPRINK GTUBE SCH ×2 (09:17→20:19)
[2022-03-31] MEDS: Aspirin 81 MG TAB.CHEW GTUBE SCH (09:17)
[2022-03-31 10:47] LABS: Calcium 8.5 mg/dL (8.6-10.3); Potassium 6.5 mEq/L (3.5-5.1)
[2022-03-31 19:15] LABS: Calcium 8.6 mg/dL (8.6-10.3); Potassium 5.6 mEq/L (3.5-5.1)
[2022-03-31 23:48] LABS: Calcium 8.3 mg/dL (8.6-10.3); Potassium 5.6 mEq/L (3.5-5.1)
[2022-04-01 02:51] LABS: Basophils % 0.1 %; Hematocrit 25.6 % (37.5-50.1); Hemoglobin 7.7 g/dL (12.9-16.9); Immature Granulocytes % 0.8 % (0-4); Lymphocytes # 1.4 K/mcL (0.6-4.6); Lymphocytes % 12.1 %; Mean Corpuscular HGB Conc 30.1 g/dL (31.6-35.5); Mean Corpuscular Hemoglobin 32.9 pg (28.0-33.3); Mean Corpuscular Volume 109.4 fL (83.0-100.0); Mean Platelet Volume 10.9 fL (9.4-12.4); Monocytes # 0.2 K/mcL (0.0-1.3); Monocytes % 1.5 %; Neutrophils # 10.2 K/mcL (1.6-8.9); Platelet Count 175 K/mcL (140-400); Red Blood Count 2.34 M/mcL (4.19-5.50); Red Cell Distribution Width 21.8 % (11.5-14.5); Segmented Neutrophils % 85.5 %; White Blood Count 11.9 K/mcL (4.3-11.1)
[2022-04-01 03:30] LABS: Calcium 8.1 mg/dL (8.6-10.3); Magnesium 2.5 mg/dL (1.6-2.6); Phosphorous 6.1 mg/dL (2.7-4.5); Potassium 5.4 mEq/L (3.5-5.1)
[2022-04-01] MEDS: *HR* HYDROmorphone (PF) 1 MG/ML SYRINGE IVP PRN ×4 (04:33→21:03)
[2022-04-01] MEDS: Doxycycline 100 MG in 0.9 % Sodium Chloride Mini Bag 100 ML IVPB SCH ×2 (06:14→18:04)
[2022-04-01] MEDS: *HR* Heparin 5,000 UNIT/ML VIAL SQ SCH ×3 (06:21→21:48)
[2022-04-01 07:29] LABS: Calcium 8.2 mg/dL (8.6-10.3); Potassium 5.1 mEq/L (3.5-5.1)
[2022-04-01] MEDS: Aspirin 81 MG TAB.CHEW GTUBE SCH (07:53)
[2022-04-01] MEDS: Furosemide 40 MG/4 ML VIAL IVP SCH (07:54)
[2022-04-01] MEDS: *HR* Amiodarone 200 MG TABLET GTUBE SCH (07:54)
[2022-04-01] MEDS: Lactobacillus 1 EACH CAP.SPRINK GTUBE SCH ×2 (07:55→21:03)
[2022-04-01] MEDS: Levothyroxine Sodium 100 MCG VIAL IVP SCH (07:55)
[2022-04-01] MEDS: Budesonide/Formoterol 80/4.5 1 PUFF INH IH SCH ×2 (08:18→20:17)
[2022-04-01] MEDS ORDERED: Dextrose Gel 15 GM/37.5 ML TUBE PO PRN ×3 (11:00→11:41)
[2022-04-01] MEDS ORDERED: D5% in Water 1,000 ML IVC PRN ×2 (11:00→11:41)
[2022-04-01] MEDS ORDERED: *HR* Dextrose 50 % in Water (Syg) 50 ML SYRINGE IVP PRN ×2 (11:00→11:41)
[2022-04-01 11:25] LABS: Calcium 8.3 mg/dL (8.6-10.3)
[2022-04-01] MEDS ORDERED: Insulin LISPRO 300 UNITS/3 ML VIAL SUBQ SCH ×3 (11:30→21:00)
[2022-04-01] MEDS ORDERED: Vancomycin 1,500 MG/265 ML IV.SOLN IVPB SCH (13:00)
[2022-04-01] MEDS: D10% in Water 500 ML IVC SCH (13:51)
[2022-04-01 15:54] LABS: Calcium 8.2 mg/dL (8.6-10.3); Potassium 4.8 mEq/L (3.5-5.1)
[2022-04-01] MEDS: Insulin LISPRO 300 UNITS/3 ML VIAL SUBQ SCH ×2 (16:24→21:48)
[2022-04-01 19:02] LABS: Calcium 7.8 mg/dL (8.6-10.3); Potassium 4.3 mEq/L (3.5-5.1)
[2022-04-02] MEDS: D10% in Water 500 ML IVC SCH ×3 (00:06→20:49)
[2022-04-02 04:25] LABS: Basophils % 0.1 %; Hematocrit 27.2 % (37.5-50.1); Hemoglobin 8.3 g/dL (12.9-16.9); Immature Granulocytes % 0.9 % (0-4); Lymphocytes % 14.3 %; Mean Corpuscular HGB Conc 30.5 g/dL (31.6-35.5); Mean Corpuscular Hemoglobin 32.8 pg (28.0-33.3); Mean Corpuscular Volume 107.5 fL (83.0-100.0); Mean Platelet Volume 10.7 fL (9.4-12.4); Monocytes # 0.3 K/mcL (0.0-1.3); Monocytes % 4.3 %; Neutrophils # 5.6 K/mcL (1.6-8.9); Platelet Count 196 K/mcL (140-400); Red Blood Count 2.53 M/mcL (4.19-5.50); Red Cell Distribution Width 21.2 % (11.5-14.5); Segmented Neutrophils % 80.4 %; White Blood Count 6.9 K/mcL (4.3-11.1)
[2022-04-02] MEDS: *HR* Heparin 5,000 UNIT/ML VIAL SQ SCH ×3 (05:58→21:52)
[2022-04-02] MEDS: *HR* HYDROmorphone (PF) 1 MG/ML SYRINGE IVP PRN ×3 (05:58→16:13)
[2022-04-02] MEDS: Doxycycline 100 MG in 0.9 % Sodium Chloride Mini Bag 100 ML IVPB SCH ×2 (06:36→18:34)
[2022-04-02] MEDS: Budesonide/Formoterol 80/4.5 1 PUFF INH IH SCH ×2 (07:25→19:42)
[2022-04-02] MEDS: *HR* Amiodarone 200 MG TABLET GTUBE SCH (08:53)
[2022-04-02] MEDS: Lactobacillus 1 EACH CAP.SPRINK GTUBE SCH ×2 (08:53→21:52)
[2022-04-02] MEDS: Furosemide 40 MG/4 ML VIAL IVP SCH (08:54)
[2022-04-02] MEDS: Aspirin 81 MG TAB.CHEW GTUBE SCH (08:54)
[2022-04-02] MEDS: Levothyroxine Sodium 100 MCG VIAL IVP SCH (08:55)
[2022-04-02] MEDS: Insulin LISPRO 300 UNITS/3 ML VIAL SUBQ SCH ×4 (08:56→21:51)
[2022-04-02 12:28] LABS: Calcium 7.7 mg/dL (8.6-10.3); Magnesium 2.4 mg/dL (1.6-2.6); Potassium 3.7 mEq/L (3.5-5.1)
[2022-04-03 04:12] LABS: Hematocrit 26.2 % (37.5-50.1); Hemoglobin 8.2 g/dL (12.9-16.9); Immature Granulocytes % 0.4 % (0-4); Lymphocytes # 0.8 K/mcL (0.6-4.6); Lymphocytes % 8.8 %; Mean Corpuscular HGB Conc 31.3 g/dL (31.6-35.5); Mean Corpuscular Hemoglobin 32.9 pg (28.0-33.3); Mean Corpuscular Volume 105.2 fL (83.0-100.0); Mean Platelet Volume 10.9 fL (9.4-12.4); Monocytes # 0.5 K/mcL (0.0-1.3); Monocytes % 4.9 %; Neutrophils # 7.8 K/mcL (1.6-8.9); Nucleated Red Blood Cells 0.2 /100 WBC (0); Platelet Count 219 K/mcL (140-400); Red Blood Count 2.49 M/mcL (4.19-5.50); Red Cell Distribution Width 20.7 % (11.5-14.5); Segmented Neutrophils % 85.9 %; White Blood Count 9.1 K/mcL (4.3-11.1)
[2022-04-03 04:49] LABS: Calcium 7.3 mg/dL (8.6-10.3); Magnesium 2.3 mg/dL (1.6-2.6); Potassium 3.4 mEq/L (3.5-5.1)
[2022-04-03] MEDS: D10% in Water 500 ML IVC SCH (04:59)
[2022-04-03] MEDS: Doxycycline 100 MG in 0.9 % Sodium Chloride Mini Bag 100 ML IVPB SCH ×2 (05:40→18:02)
[2022-04-03] MEDS: *HR* Heparin 5,000 UNIT/ML VIAL SQ SCH ×3 (05:42→22:33)
[2022-04-03] MEDS: Lactobacillus 1 EACH CAP.SPRINK GTUBE SCH ×2 (09:34→20:55)
[2022-04-03] MEDS: Aspirin 81 MG TAB.CHEW GTUBE SCH (09:34)
[2022-04-03] MEDS: *HR* Amiodarone 200 MG TABLET GTUBE SCH (09:34)
[2022-04-03] MEDS: *HR* FentaNYL PATCH 25 MCG PATCH TD SCH (09:34)
[2022-04-03] MEDS: Levothyroxine Sodium 100 MCG VIAL IVP SCH (09:35)
[2022-04-03] MEDS: Furosemide 40 MG/4 ML VIAL IVP SCH (09:36)
[2022-04-03] MEDS: Calcium Gluconate 1gm/50mL 1 GM/50 ML BAG IVPB SCH ×2 (09:37→11:05)
[2022-04-03] MEDS: Insulin LISPRO 300 UNITS/3 ML VIAL SUBQ SCH ×4 (09:37→20:56)
[2022-04-03] MEDS: Budesonide/Formoterol 80/4.5 1 PUFF INH IH SCH ×2 (10:14→19:56)
[2022-04-03] MEDS: *HR* HYDROmorphone (PF) 1 MG/ML SYRINGE IVP PRN ×2 (11:05→16:26)
[2022-04-04] MEDS: *HR* Heparin 5,000 UNIT/ML VIAL SQ SCH ×3 (05:09→21:53)
[2022-04-04] MEDS: Doxycycline 100 MG in 0.9 % Sodium Chloride Mini Bag 100 ML IVPB SCH ×2 (05:09→18:02)
[2022-04-04 05:23] LABS: Basophils % 0.1 %; Hematocrit 25.3 % (37.5-50.1); Hemoglobin 8.1 g/dL (12.9-16.9); Immature Granulocytes % 0.5 % (0-4); Lymphocytes # 2.1 K/mcL (0.6-4.6); Lymphocytes % 19.4 %; Mean Corpuscular Hemoglobin 33.8 pg (28.0-33.3); Mean Corpuscular Volume 105.4 fL (83.0-100.0); Monocytes # 0.5 K/mcL (0.0-1.3); Neutrophils # 8.1 K/mcL (1.6-8.9); Nucleated Red Blood Cells 0.3 /100 WBC (0); Platelet Count 267 K/mcL (140-400); Red Cell Distribution Width 20.7 % (11.5-14.5); White Blood Count 10.7 K/mcL (4.3-11.1)
[2022-04-04 06:22] LABS: Calcium 6.7 mg/dL (8.6-10.3); Potassium 4.4 mEq/L (3.5-5.1)
[2022-04-04] MEDS: Budesonide/Formoterol 80/4.5 1 PUFF INH IH SCH ×2 (07:43→20:35)
[2022-04-04] MEDS: Insulin LISPRO 300 UNITS/3 ML VIAL SUBQ SCH ×4 (09:30→20:41)
[2022-04-04] MEDS: Furosemide 40 MG/4 ML VIAL IVP SCH (09:35)
[2022-04-04] MEDS: *HR* Amiodarone 200 MG TABLET GTUBE SCH (09:35)
[2022-04-04] MEDS: Lactobacillus 1 EACH CAP.SPRINK GTUBE SCH ×2 (09:36→21:52)
[2022-04-04] MEDS: Aspirin 81 MG TAB.CHEW GTUBE SCH (09:36)
[2022-04-04] MEDS: Levothyroxine Sodium 100 MCG VIAL IVP SCH (09:36)
[2022-04-04] MEDS: Ondansetron 4 MG/2 ML VIAL IVP PRN (10:20)
[2022-04-05 03:42] LABS: Basophils % 0.1 %; Eosinophils # 0.1 K/mcL (0.0-0.6); Hematocrit 25.1 % (37.5-50.1); Hemoglobin 7.9 g/dL (12.9-16.9); Immature Granulocytes % 0.4 % (0-4); Lymphocytes # 2.7 K/mcL (0.6-4.6); Lymphocytes % 25.4 %; Mean Corpuscular HGB Conc 31.5 g/dL (31.6-35.5); Mean Corpuscular Hemoglobin 32.5 pg (28.0-33.3); Mean Corpuscular Volume 103.3 fL (83.0-100.0); Mean Platelet Volume 10.4 fL (9.4-12.4); Monocytes # 0.6 K/mcL (0.0-1.3); Monocytes % 5.3 %; Neutrophils # 7.2 K/mcL (1.6-8.9); Nucleated Red Blood Cells 0.2 /100 WBC (0); Platelet Count 234 K/mcL (140-400); Red Blood Count 2.43 M/mcL (4.19-5.50); Red Cell Distribution Width 20.5 % (11.5-14.5); Segmented Neutrophils % 67.8 %; White Blood Count 10.7 K/mcL (4.3-11.1)
[2022-04-05 04:16] LABS: Albumin 2.2 g/dL (3.5-5.7); Calcium 6.6 mg/dL (8.6-10.3); Potassium 4.4 mEq/L (3.5-5.1)
[2022-04-05] MEDS: *HR* Heparin 5,000 UNIT/ML VIAL SQ SCH ×3 (04:48→20:47)
[2022-04-05] MEDS: Doxycycline 100 MG in 0.9 % Sodium Chloride Mini Bag 100 ML IVPB SCH ×2 (04:49→18:02)
[2022-04-05] MEDS: Ondansetron 4 MG/2 ML VIAL IVP PRN (04:51)
[2022-04-05] MEDS: Budesonide/Formoterol 80/4.5 1 PUFF INH IH SCH ×2 (07:31→22:40)
[2022-04-05] MEDS ORDERED: Ringers Solution, Lactated 500 ML IVC ONE (09:28)
[2022-04-05] MEDS ORDERED: Calcium Gluconate 1gm/50mL 1 GM/50 ML BAG IVPB ONE (09:43)
[2022-04-05] MEDS ORDERED: Albumin 25% 25gram/100mL 25 GM/100 ML IV.SOLN IVPB ONE (10:06)
[2022-04-05] MEDS ORDERED: Ringers Solution, Lactated 250 ML IVC ONE (10:15)
[2022-04-05] MEDS: Insulin LISPRO 300 UNITS/3 ML VIAL SUBQ SCH ×4 (10:17→20:48)
[2022-04-05] MEDS: *HR* HYDROmorphone (PF) 1 MG/ML SYRINGE IVP PRN ×3 (10:40→20:47)
[2022-04-05] MEDS: *HR* Amiodarone 200 MG TABLET GTUBE SCH (10:41)
[2022-04-05] MEDS: Aspirin 81 MG TAB.CHEW GTUBE SCH (16:16)
[2022-04-05] MEDS: Lactobacillus 1 EACH CAP.SPRINK GTUBE SCH ×2 (16:16→20:47)
[2022-04-06] MEDS: *HR* HYDROmorphone (PF) 1 MG/ML SYRINGE IVP PRN ×3 (03:45→15:05)
[2022-04-06 05:06] LABS: Hematocrit 22.6 % (37.5-50.1); Hemoglobin 7.3 g/dL (12.9-16.9); Mean Corpuscular HGB Conc 32.3 g/dL (31.6-35.5); Mean Corpuscular Hemoglobin 33.5 pg (28.0-33.3); Mean Corpuscular Volume 103.7 fL (83.0-100.0); Mean Platelet Volume 10.7 fL (9.4-12.4); Platelet Count 178 K/mcL (140-400); Red Blood Count 2.18 M/mcL (4.19-5.50); Red Cell Distribution Width 19.9 % (11.5-14.5); White Blood Count 10.1 K/mcL (4.3-11.1)
[2022-04-06 05:45] LABS: INR 1.1
[2022-04-06] MEDS: *HR* Heparin 5,000 UNIT/ML VIAL SQ SCH ×3 (06:24→22:30)
[2022-04-06 07:15] LABS: Blood Urea Nitrogen > 390 mg/dL (8-23); Calcium 6.6 mg/dL (8.6-10.3); Carbon Dioxide 18 mEq/L (23-29); Chloride 99 mEq/L (98-107); Glucose 77 mg/dL (70-105); Magnesium 2.1 mg/dL (1.6-2.6); Potassium 4.3 mEq/L (3.5-5.1); Sodium 132 mEq/L (136-145)
[2022-04-06] MEDS: Budesonide/Formoterol 80/4.5 1 PUFF INH IH SCH ×2 (08:12→22:12)
[2022-04-06] MEDS: Aspirin 81 MG TAB.CHEW GTUBE SCH (08:41)
[2022-04-06] MEDS: Lactobacillus 1 EACH CAP.SPRINK GTUBE SCH ×2 (08:41→22:29)
[2022-04-06] MEDS: *HR* Amiodarone 200 MG TABLET GTUBE SCH (08:41)
[2022-04-06] MEDS: Insulin LISPRO 300 UNITS/3 ML VIAL SUBQ SCH ×4 (08:46→22:30)
[2022-04-06] MEDS: *HR* FentaNYL PATCH 25 MCG PATCH TD SCH (08:50)
[2022-04-06 10:02] LABS: Calcium 6.5 mg/dL (8.6-10.3); Potassium 4.3 mEq/L (3.5-5.1)
[2022-04-06] MEDS: Calcium Gluconate 1gm/50mL 1 GM/50 ML BAG IVPB SCH ×2 (14:54→16:05)
[2022-04-06] MEDS ORDERED: ROPIVACAINE/PF/NS 0.25% 1 EACH SYRINGE INTRAART ONE (19:41)
[2022-04-06] MEDS ORDERED: Ketamine HCL *QUVA* 50mg (1mL) SYRINGE ONE (19:58)
[2022-04-06] MEDS ORDERED: *HR* Midazolam HCl 2 MG/2 ML VIAL ONE (19:58)
[2022-04-06] MEDS ORDERED: *HR* Phenylephrine 10 MG/ML VIAL ONE (20:00)
[2022-04-06] MEDS ORDERED: Lidocaine -MPF 2% 5 ML VIAL ONE (20:01)
[2022-04-06] MEDS ORDERED: *HR* Propofol 200 MG/20 ML VIAL IVP ONE (20:03)
[2022-04-06] MEDS ORDERED: EPHEDrine 50 MG/ML VIAL ONE (20:06)
[2022-04-06] MEDS ORDERED: ceFAZolin 2,000 MG in Water for inj. (sterile) 20 ML IVP ONE (21:00)
[2022-04-06] MEDS ORDERED: Naloxone 0.4 MG/ML INJ IVP PRN (22:10)
[2022-04-06] MEDS ORDERED: *HR* Dextrose 50 % in Water (Syg) 50 ML SYRINGE IVP PRN (22:10)
[2022-04-06] MEDS ORDERED: Ondansetron 4 MG/2 ML VIAL IVP PRN (22:10)
[2022-04-06] MEDS ORDERED: D5% in Water 1,000 ML IVC PRN (22:10)
[2022-04-06] MEDS ORDERED: Dextrose Gel 15 GM/37.5 ML TUBE PO PRN ×2 (22:10)
[2022-04-06] MEDS ORDERED: *HR* HYDROmorphone (PF) 1 MG/ML SYRINGE IVP PRN (22:10)
[2022-04-07 03:59] LABS: Basophils % 0.1 %; Hematocrit 19.7 % (37.5-50.1); Hemoglobin 6.3 g/dL (12.9-16.9); Immature Granulocytes % 0.6 % (0-4); Lymphocytes # 0.3 K/mcL (0.6-4.6); Lymphocytes % 2.6 %; Mean Corpuscular Hemoglobin 32.8 pg (28.0-33.3); Mean Corpuscular Volume 102.6 fL (83.0-100.0); Mean Platelet Volume 10.5 fL (9.4-12.4); Monocytes % 0.3 %; Neutrophils # 10.3 K/mcL (1.6-8.9); Platelet Count 154 K/mcL (140-400); Red Blood Count 1.92 M/mcL (4.19-5.50); Red Cell Distribution Width 19.9 % (11.5-14.5); Segmented Neutrophils % 96.4 %; White Blood Count 10.7 K/mcL (4.3-11.1)
[2022-04-07 04:37] LABS: Calcium 6.5 mg/dL (8.6-10.3); Potassium 4.9 mEq/L (3.5-5.1)
[2022-04-07] MEDS: *HR* Heparin 5,000 UNIT/ML VIAL SQ SCH ×3 (07:00→22:29)
[2022-04-07] MEDS: *HR* HYDROmorphone (PF) 1 MG/ML SYRINGE IVP PRN ×3 (10:07→22:15)
[2022-04-07] MEDS: Aspirin 81 MG TAB.CHEW GTUBE SCH (10:08)
[2022-04-07] MEDS: *HR* Amiodarone 200 MG TABLET GTUBE SCH (10:08)
[2022-04-07] MEDS: Lactobacillus 1 EACH CAP.SPRINK GTUBE SCH ×2 (10:08→20:03)
[2022-04-07] MEDS: Insulin LISPRO 300 UNITS/3 ML VIAL SUBQ SCH ×4 (10:15→21:36)
[2022-04-07] MEDS: Budesonide/Formoterol 80/4.5 1 PUFF INH IH SCH ×2 (10:39→19:58)
[2022-04-07] MEDS ORDERED: 0.9 % Sodium Chloride 250 ML ONE (16:41)
[2022-04-08 02:12] LABS: Calcium 6.5 mg/dL (8.6-10.3)
[2022-04-08] MEDS: *HR* HYDROmorphone (PF) 1 MG/ML SYRINGE IVP PRN ×3 (03:59→17:50)
[2022-04-08 04:28] LABS: Basophils % 0.1 %; Eosinophils % 0.1 %; Hematocrit 24.9 % (37.5-50.1); Hemoglobin 8.4 g/dL (12.9-16.9); Immature Granulocytes % 0.8 % (0-4); Lymphocytes # 2.1 K/mcL (0.6-4.6); Lymphocytes % 14.4 %; Mean Corpuscular HGB Conc 33.7 g/dL (31.6-35.5); Mean Corpuscular Hemoglobin 32.1 pg (28.0-33.3); Mean Platelet Volume 10.7 fL (9.4-12.4); Monocytes # 0.5 K/mcL (0.0-1.3); Monocytes % 3.6 %; Neutrophils # 11.7 K/mcL (1.6-8.9); Nucleated Red Blood Cells 0.3 /100 WBC (0); Platelet Count 161 K/mcL (140-400); Red Blood Count 2.62 M/mcL (4.19-5.50); Red Cell Distribution Width 20.6 % (11.5-14.5); White Blood Count 14.4 K/mcL (4.3-11.1)
[2022-04-08] MEDS: *HR* Heparin 5,000 UNIT/ML VIAL SQ SCH ×3 (05:00→22:32)
[2022-04-08] MEDS: Budesonide/Formoterol 80/4.5 1 PUFF INH IH SCH ×2 (08:08→20:23)
[2022-04-08] MEDS: Insulin LISPRO 300 UNITS/3 ML VIAL SUBQ SCH ×4 (08:29→22:32)
[2022-04-08] MEDS: Lactobacillus 1 EACH CAP.SPRINK GTUBE SCH ×2 (09:35→22:31)
[2022-04-08] MEDS: *HR* Amiodarone 200 MG TABLET GTUBE SCH (09:35)
[2022-04-08] MEDS: Aspirin 81 MG TAB.CHEW GTUBE SCH (09:36)
[2022-04-08] MEDS: Sodium Bicarbonate 75 MEQ in 0.45 % Sodium Chloride 1,000 ML IVC SCH (14:32)
[2022-04-08] MEDS: Calcium Acetate 667 MG CAPSULE PO SCH (17:53)
[2022-04-09] MEDS: *HR* Heparin 5,000 UNIT/ML VIAL SQ SCH ×3 (05:49→21:54)
[2022-04-09] MEDS: *HR* HYDROmorphone (PF) 1 MG/ML SYRINGE IVP PRN (05:49)
[2022-04-09 07:24] LABS: Eosinophils # 0.2 K/mcL (0.0-0.6); Eosinophils % 1.2 %; Hematocrit 24.7 % (37.5-50.1); Immature Granulocytes % 1.1 % (0-4); Lymphocytes # 1.9 K/mcL (0.6-4.6); Mean Corpuscular HGB Conc 32.4 g/dL (31.6-35.5); Mean Corpuscular Hemoglobin 31.4 pg (28.0-33.3); Mean Corpuscular Volume 96.9 fL (83.0-100.0); Mean Platelet Volume 11.3 fL (9.4-12.4); Monocytes # 0.6 K/mcL (0.0-1.3); Monocytes % 4.1 %; Neutrophils # 10.9 K/mcL (1.6-8.9); Nucleated Red Blood Cells 0.3 /100 WBC (0); Platelet Count 159 K/mcL (140-400); Red Blood Count 2.55 M/mcL (4.19-5.50); Red Cell Distribution Width 19.8 % (11.5-14.5); Segmented Neutrophils % 79.6 %; White Blood Count 13.7 K/mcL (4.3-11.1)
[2022-04-09] MEDS: Budesonide/Formoterol 80/4.5 1 PUFF INH IH SCH ×2 (07:42→20:06)
[2022-04-09 08:00] LABS: Albumin 2.2 g/dL (3.5-5.7); Calcium 6.4 mg/dL (8.6-10.3); Phosphorous 8.6 mg/dL (2.7-4.5); Potassium 4.6 mEq/L (3.5-5.1)
[2022-04-09] MEDS: Insulin LISPRO 300 UNITS/3 ML VIAL SUBQ SCH ×4 (08:20→21:01)
[2022-04-09] MEDS: *HR* FentaNYL PATCH 25 MCG PATCH TD SCH (09:55)
[2022-04-09] MEDS: Calcium Acetate 667 MG CAPSULE PO SCH ×3 (09:59→14:30)
[2022-04-09] MEDS: Lactobacillus 1 EACH CAP.SPRINK GTUBE SCH ×2 (09:59→21:54)
[2022-04-09] MEDS: Aspirin 81 MG TAB.CHEW GTUBE SCH (09:59)
[2022-04-09] MEDS: *HR* Amiodarone 200 MG TABLET GTUBE SCH (09:59)
[2022-04-09] MEDS: Sodium Bicarbonate 75 MEQ in 0.45 % Sodium Chloride 1,000 ML IVC SCH (14:29)
[2022-04-10] MEDS: *HR* Heparin 5,000 UNIT/ML VIAL SQ SCH ×2 (04:16→19:17)
[2022-04-10] MEDS: *HR* HYDROmorphone (PF) 1 MG/ML SYRINGE IVP PRN ×2 (05:12→22:02)
[2022-04-10] MEDS: Budesonide/Formoterol 80/4.5 1 PUFF INH IH SCH ×2 (07:54→22:55)
[2022-04-10] MEDS ORDERED: Heparin 1,000 UNITS/500 mL 500 ML ONE (08:38)
[2022-04-10] MEDS ORDERED: *HR* Heparin 5,000 UNIT/ML VIAL ONE ×2 (09:23→09:36)
[2022-04-10] MEDS: *HR* Amiodarone 200 MG TABLET GTUBE SCH (10:26)
[2022-04-10] MEDS: Aspirin 81 MG TAB.CHEW GTUBE SCH (10:26)
[2022-04-10] MEDS: Lactobacillus 1 EACH CAP.SPRINK GTUBE SCH ×2 (10:26→22:01)
[2022-04-10] MEDS: Calcium Acetate 667 MG CAPSULE PO SCH ×3 (10:27→19:18)
[2022-04-10] MEDS: Insulin LISPRO 300 UNITS/3 ML VIAL SUBQ SCH ×4 (10:43→22:03)
[2022-04-10] MEDS ORDERED: *HR* Heparin 10,000 UNIT/10 ML VIAL IV PRN (11:36)
[2022-04-10] MEDS ORDERED: 0.9 % Sodium Chloride 250 ML IVC PRN (11:36)
[2022-04-10] MEDS ORDERED: 0.9 % Sodium Chloride 2,000 ML PRIME SCH (11:45)
[2022-04-10] MEDS: Melatonin 3 MG TABLET GTUBE PRN (22:01)
[2022-04-11] MEDS: *HR* Heparin 5,000 UNIT/ML VIAL SQ SCH ×4 (03:35→21:02)
[2022-04-11 03:40] LABS: Basophils % 0.1 %; Eosinophils # 0.1 K/mcL (0.0-0.6); Eosinophils % 0.7 %; Hematocrit 23.1 % (37.5-50.1); Hemoglobin 7.7 g/dL (12.9-16.9); Immature Granulocytes % 0.8 % (0-4); Lymphocytes # 1.3 K/mcL (0.6-4.6); Lymphocytes % 11.6 %; Mean Corpuscular HGB Conc 33.3 g/dL (31.6-35.5); Mean Corpuscular Volume 95.9 fL (83.0-100.0); Monocytes # 0.5 K/mcL (0.0-1.3); Monocytes % 4.6 %; Neutrophils # 9.2 K/mcL (1.6-8.9); Nucleated Red Blood Cells 0.2 /100 WBC (0); Platelet Count 145 K/mcL (140-400); Red Blood Count 2.41 M/mcL (4.19-5.50); Red Cell Distribution Width 18.8 % (11.5-14.5); Segmented Neutrophils % 82.2 %; White Blood Count 11.2 K/mcL (4.3-11.1)
[2022-04-11 03:58] LABS: Calcium 6.8 mg/dL (8.6-10.3); Phosphorous 4.8 mg/dL (2.7-4.5); Potassium 3.7 mEq/L (3.5-5.1)
[2022-04-11 04:45] LABS: Magnesium 1.9 mg/dL (1.6-2.6)
[2022-04-11] MEDS: Insulin LISPRO 300 UNITS/3 ML VIAL SUBQ SCH ×4 (08:07→22:28)
[2022-04-11] MEDS: *HR* Amiodarone 200 MG TABLET GTUBE SCH (08:08)
[2022-04-11] MEDS: Lactobacillus 1 EACH CAP.SPRINK GTUBE SCH ×2 (08:08→21:02)
[2022-04-11] MEDS: Aspirin 81 MG TAB.CHEW GTUBE SCH (08:08)
[2022-04-11] MEDS: Calcium Acetate 667 MG CAPSULE PO SCH ×3 (08:08→12:35)
[2022-04-11] MEDS: *HR* HYDROmorphone (PF) 1 MG/ML SYRINGE IVP PRN ×3 (08:09→21:05)
[2022-04-11] MEDS ORDERED: 0.9 % Sodium Chloride 250 ML IVC PRN (08:13)
[2022-04-11] MEDS ORDERED: *HR* Heparin 10,000 UNIT/10 ML VIAL IV PRN (08:13)
[2022-04-11] MEDS: Budesonide/Formoterol 80/4.5 1 PUFF INH IH SCH ×2 (10:35→20:30)
[2022-04-11] MEDS ORDERED: Albumin 25% 25gram/100mL 25 GM/100 ML IV.SOLN IVPB ONE (17:34)
[2022-04-11] MEDS ORDERED: *HR* HYDROmorphone (PF) 1 MG/ML SYRINGE ONE (17:57)
[2022-04-11] MEDS ORDERED: Albumin 25% 25gram/100mL 25 GM/100 ML IV.SOLN ONE (17:57)
[2022-04-11] MEDS: Melatonin 3 MG TABLET GTUBE PRN (21:04)
[2022-04-12] MEDS: *HR* HYDROmorphone (PF) 1 MG/ML SYRINGE IVP PRN ×5 (01:13→18:39)
[2022-04-12 04:14] LABS: Eosinophils # 0.1 K/mcL (0.0-0.6); Eosinophils % 1.5 %; Hematocrit 21.2 % (37.5-50.1); Hemoglobin 6.9 g/dL (12.9-16.9); Immature Granulocytes % 0.6 % (0-4); Lymphocytes # 0.8 K/mcL (0.6-4.6); Lymphocytes % 9.8 %; Mean Corpuscular HGB Conc 32.5 g/dL (31.6-35.5); Mean Corpuscular Hemoglobin 31.9 pg (28.0-33.3); Mean Corpuscular Volume 98.1 fL (83.0-100.0); Mean Platelet Volume 10.8 fL (9.4-12.4); Monocytes # 0.5 K/mcL (0.0-1.3); Neutrophils # 6.7 K/mcL (1.6-8.9); Nucleated Red Blood Cells 0.2 /100 WBC (0); Platelet Count 132 K/mcL (140-400); Red Blood Count 2.16 M/mcL (4.19-5.50); Red Cell Distribution Width 19.4 % (11.5-14.5); Segmented Neutrophils % 82.1 %; White Blood Count 8.2 K/mcL (4.3-11.1)
[2022-04-12 04:39] LABS: BUN/Creatinine Ratio 27 (6-26); Blood Urea Nitrogen 54 mg/dL (8-23); Calcium 7.5 mg/dL (8.6-10.3); Carbon Dioxide 25 mEq/L (23-29); Chloride 102 mEq/L (98-107); Glucose 127 mg/dL (70-105); Osmolality,Calculated 302 (280-300); Potassium 3.4 mEq/L (3.5-5.1); Sodium 138 mEq/L (136-145)
[2022-04-12] MEDS: *HR* Heparin 5,000 UNIT/ML VIAL SQ SCH ×3 (05:20→20:43)
[2022-04-12] MEDS ORDERED: Potassium Chloride Elixir 20 MEQ/15 ML UDC GTUBE ONE (07:39)
[2022-04-12] MEDS: Budesonide/Formoterol 80/4.5 1 PUFF INH IH SCH ×2 (07:43→22:10)
[2022-04-12] MEDS: Aspirin 81 MG TAB.CHEW GTUBE SCH (09:27)
[2022-04-12] MEDS: Calcium Acetate 667 MG CAPSULE PO SCH ×3 (09:27→17:08)
[2022-04-12] MEDS: Insulin LISPRO 300 UNITS/3 ML VIAL SUBQ SCH ×4 (09:27→20:43)
[2022-04-12] MEDS: *HR* Amiodarone 200 MG TABLET GTUBE SCH (09:27)
[2022-04-12] MEDS: Lactobacillus 1 EACH CAP.SPRINK GTUBE SCH ×2 (09:27→20:43)
[2022-04-12] MEDS: *HR* FentaNYL PATCH 25 MCG PATCH TD SCH (09:28)
[2022-04-12 10:18] LABS: Hematocrit 21.2 % (37.5-50.1); Hemoglobin 6.8 g/dL (12.9-16.9); Mean Corpuscular HGB Conc 32.1 g/dL (31.6-35.5); Mean Corpuscular Hemoglobin 31.6 pg (28.0-33.3); Mean Corpuscular Volume 98.6 fL (83.0-100.0); Mean Platelet Volume 11.4 fL (9.4-12.4); Platelet Count 143 K/mcL (140-400); Red Blood Count 2.15 M/mcL (4.19-5.50); Red Cell Distribution Width 19.3 % (11.5-14.5)
[2022-04-12 11:52] LABS: Iron 74 mcg/dL (65-175); Transferrin < 75 mg/dL (203-362)
[2022-04-12 12:51] LABS: Ferritin > 1500 ng/mL (20-250)
[2022-04-12] MEDS ORDERED: 0.9 % Sodium Chloride 250 ML ONE (16:26)
[2022-04-12] MEDS: Melatonin 3 MG TABLET GTUBE PRN (20:43)
[2022-04-12 21:20] LABS: Hematocrit 25.2 % (37.5-50.1); Hemoglobin 8.3 g/dL (12.9-16.9); Mean Corpuscular HGB Conc 32.9 g/dL (31.6-35.5); Mean Corpuscular Hemoglobin 32.3 pg (28.0-33.3); Mean Corpuscular Volume 98.1 fL (83.0-100.0); Mean Platelet Volume 11.1 fL (9.4-12.4); Platelet Count 144 K/mcL (140-400); Red Blood Count 2.57 M/mcL (4.19-5.50); Red Cell Distribution Width 18.6 % (11.5-14.5); White Blood Count 11.1 K/mcL (4.3-11.1)
[2022-04-13] MEDS: *HR* HYDROmorphone (PF) 1 MG/ML SYRINGE IVP PRN ×4 (02:32→20:35)
[2022-04-13] MEDS: *HR* Heparin 5,000 UNIT/ML VIAL SQ SCH ×3 (05:29→20:32)
[2022-04-13] MEDS: Insulin LISPRO 300 UNITS/3 ML VIAL SUBQ SCH ×4 (07:30→21:04)
[2022-04-13] MEDS: Budesonide/Formoterol 80/4.5 1 PUFF INH IH SCH ×2 (07:40→20:37)
[2022-04-13 07:51] LABS: Calcium 7.5 mg/dL (8.6-10.3); Potassium 3.6 mEq/L (3.5-5.1)
[2022-04-13 08:01] LABS: Hematocrit 22.8 % (37.5-50.1); Hemoglobin 7.6 g/dL (12.9-16.9); Immature Platelets 7.2 % (1.1-6.1); Mean Corpuscular HGB Conc 33.3 g/dL (31.6-35.5); Mean Corpuscular Hemoglobin 32.5 pg (28.0-33.3); Mean Corpuscular Volume 97.4 fL (83.0-100.0); Mean Platelet Volume 11.2 fL (9.4-12.4); Red Blood Count 2.34 M/mcL (4.19-5.50); Red Cell Distribution Width 19.5 % (11.5-14.5); White Blood Count 9.8 K/mcL (4.3-11.1)
[2022-04-13] MEDS: Aspirin 81 MG TAB.CHEW GTUBE SCH (10:16)
[2022-04-13] MEDS: *HR* Amiodarone 200 MG TABLET GTUBE SCH (10:16)
[2022-04-13] MEDS: Lactobacillus 1 EACH CAP.SPRINK GTUBE SCH ×2 (10:16→20:32)
[2022-04-13] MEDS: Calcium Acetate 667 MG CAPSULE PO SCH ×3 (10:22→18:00)
[2022-04-13] MEDS: Melatonin 3 MG TABLET GTUBE PRN (20:32)
[2022-04-14] MEDS ORDERED: Acetaminophen IV 1,000 MG/100 ML BAG IVPB ONE (02:49)
[2022-04-14 02:56] LABS: Hematocrit 23.6 % (37.5-50.1); Hemoglobin 7.6 g/dL (12.9-16.9); Mean Corpuscular HGB Conc 32.2 g/dL (31.6-35.5); Mean Corpuscular Hemoglobin 32.2 pg (28.0-33.3); Mean Platelet Volume 11.6 fL (9.4-12.4); Platelet Count 173 K/mcL (140-400); Red Blood Count 2.36 M/mcL (4.19-5.50); Red Cell Distribution Width 18.9 % (11.5-14.5); White Blood Count 11.2 K/mcL (4.3-11.1)
[2022-04-14 03:17] LABS: Calcium 7.6 mg/dL (8.6-10.3); Potassium 3.7 mEq/L (3.5-5.1)
[2022-04-14 03:18] LABS: Magnesium 1.9 mg/dL (1.6-2.6); Phosphorous 2.9 mg/dL (2.7-4.5)
[2022-04-14] MEDS: *HR* Heparin 5,000 UNIT/ML VIAL SQ SCH ×3 (05:45→21:20)
[2022-04-14] MEDS ORDERED: Cefepime HCl 2,000 MG in 0.9 % Sodium Chloride 10 ML IVP SCH (06:00)
[2022-04-14] MEDS: Insulin LISPRO 300 UNITS/3 ML VIAL SUBQ SCH ×4 (08:06→21:21)
[2022-04-14] MEDS: MetroNIDAZOLE 500 MG/100 ML 500 MG/100 ML BAG IVPB SCH ×3 (08:08→23:29)
[2022-04-14] MEDS ORDERED: *HR* Heparin 10,000 UNIT/10 ML VIAL IV PRN (08:27)
[2022-04-14] MEDS ORDERED: 0.9 % Sodium Chloride 250 ML IVC PRN (08:27)
[2022-04-14] MEDS: Calcium Acetate 667 MG CAPSULE PO SCH ×2 (08:29→14:21)
[2022-04-14] MEDS: Lactobacillus 1 EACH CAP.SPRINK GTUBE SCH ×2 (08:30→21:20)
[2022-04-14] MEDS: *HR* Amiodarone 200 MG TABLET GTUBE SCH (08:32)
[2022-04-14] MEDS: Aspirin 81 MG TAB.CHEW GTUBE SCH (08:35)
[2022-04-14] MEDS: Budesonide/Formoterol 80/4.5 1 PUFF INH IH SCH ×2 (09:17→21:21)
[2022-04-14] MEDS: Metoclopramide 10 MG/10 ML UD.LIQ GTUBE SCH ×2 (16:55→23:29)
[2022-04-14] MEDS ORDERED: Cefepime HCl 1,000 MG in 0.9 % Sodium Chloride Mini Bag 100 ML IVPB SCH (18:00)
[2022-04-15 03:36] LABS: Hematocrit 21.5 % (37.5-50.1); Hemoglobin 6.9 g/dL (12.9-16.9); Mean Corpuscular HGB Conc 32.1 g/dL (31.6-35.5); Mean Corpuscular Hemoglobin 32.2 pg (28.0-33.3); Mean Corpuscular Volume 100.5 fL (83.0-100.0); Platelet Count 177 K/mcL (140-400); Red Blood Count 2.14 M/mcL (4.19-5.50); Red Cell Distribution Width 19.1 % (11.5-14.5); White Blood Count 9.1 K/mcL (4.3-11.1)
[2022-04-15 03:53] LABS: Calcium 7.2 mg/dL (8.6-10.3); Potassium 3.6 mEq/L (3.5-5.1)
[2022-04-15] MEDS: *HR* Heparin 5,000 UNIT/ML VIAL SQ SCH ×3 (05:47→20:53)
[2022-04-15] MEDS: Cefepime HCl 1,000 MG in 0.9 % Sodium Chloride Mini Bag 100 ML IVPB SCH (05:47)
[2022-04-15] MEDS: Metoclopramide 10 MG/10 ML UD.LIQ GTUBE SCH ×3 (05:48→18:02)
[2022-04-15] MEDS: Insulin LISPRO 300 UNITS/3 ML VIAL SUBQ SCH ×3 (09:23→18:02)
[2022-04-15] MEDS: Budesonide/Formoterol 80/4.5 1 PUFF INH IH SCH ×2 (09:35→21:43)
[2022-04-15] MEDS: Aspirin 81 MG TAB.CHEW GTUBE SCH (10:47)
[2022-04-15] MEDS: *HR* Amiodarone 200 MG TABLET GTUBE SCH (10:47)
[2022-04-15] MEDS: *HR* FentaNYL PATCH 25 MCG PATCH TD SCH (10:48)
[2022-04-15] MEDS: Lactobacillus 1 EACH CAP.SPRINK GTUBE SCH ×2 (10:54→20:53)
[2022-04-15] MEDS: MetroNIDAZOLE 500 MG/100 ML 500 MG/100 ML BAG IVPB SCH ×2 (10:54→17:36)
[2022-04-15] MEDS ORDERED: 0.9 % Sodium Chloride 250 ML ONE (14:11)
[2022-04-15] MEDS: Melatonin 3 MG TABLET GTUBE PRN (20:53)
[2022-04-16] MEDS: MetroNIDAZOLE 500 MG/100 ML 500 MG/100 ML BAG IVPB SCH ×3 (00:25→16:34)
[2022-04-16] MEDS: Metoclopramide 10 MG/10 ML UD.LIQ GTUBE SCH ×4 (00:26→16:33)
[2022-04-16] MEDS: Insulin LISPRO 300 UNITS/3 ML VIAL SUBQ SCH ×4 (01:10→18:23)
[2022-04-16] MEDS: Cefepime HCl 1,000 MG in 0.9 % Sodium Chloride Mini Bag 100 ML IVPB SCH (05:12)
[2022-04-16] MEDS: *HR* Heparin 5,000 UNIT/ML VIAL SQ SCH ×3 (05:16→21:06)
[2022-04-16 05:36] LABS: Hematocrit 24.3 % (37.5-50.1); Mean Corpuscular HGB Conc 32.9 g/dL (31.6-35.5); Mean Corpuscular Hemoglobin 32.3 pg (28.0-33.3); Mean Platelet Volume 10.7 fL (9.4-12.4); Platelet Count 172 K/mcL (140-400); Red Blood Count 2.48 M/mcL (4.19-5.50); Red Cell Distribution Width 18.1 % (11.5-14.5); White Blood Count 9.9 K/mcL (4.3-11.1)
[2022-04-16 05:59] LABS: Calcium 7.5 mg/dL (8.6-10.3); Potassium 3.5 mEq/L (3.5-5.1)
[2022-04-16] MEDS: Aspirin 81 MG TAB.CHEW GTUBE SCH (07:59)
[2022-04-16] MEDS: *HR* Amiodarone 200 MG TABLET GTUBE SCH (07:59)
[2022-04-16] MEDS: Lactobacillus 1 EACH CAP.SPRINK GTUBE SCH ×2 (07:59→21:06)
[2022-04-16] MEDS: Budesonide/Formoterol 80/4.5 1 PUFF INH IH SCH ×2 (10:50→23:06)
[2022-04-16] MEDS: metroNIDAZOLE 500 MG TABLET GTUBE SCH (16:39)
[2022-04-16] MEDS: Melatonin 3 MG TABLET GTUBE PRN (21:06)
[2022-04-17] MEDS: Metoclopramide 10 MG/10 ML UD.LIQ GTUBE SCH ×5 (00:28→23:28)
[2022-04-17] MEDS: metroNIDAZOLE 500 MG TABLET GTUBE SCH ×4 (00:28→23:28)
[2022-04-17] MEDS: Insulin LISPRO 300 UNITS/3 ML VIAL SUBQ SCH ×5 (00:29→23:34)
[2022-04-17 03:56] LABS: Basophils % 0.1 %; Eosinophils # 0.2 K/mcL (0.0-0.6); Eosinophils % 2.1 %; Hematocrit 24.6 % (37.5-50.1); Hemoglobin 7.9 g/dL (12.9-16.9); Immature Granulocytes % 1.5 % (0-4); Lymphocytes # 1.5 K/mcL (0.6-4.6); Lymphocytes % 17.7 %; Mean Corpuscular HGB Conc 32.1 g/dL (31.6-35.5); Mean Corpuscular Hemoglobin 31.9 pg (28.0-33.3); Mean Corpuscular Volume 99.2 fL (83.0-100.0); Mean Platelet Volume 10.7 fL (9.4-12.4); Monocytes # 0.4 K/mcL (0.0-1.3); Neutrophils # 6.3 K/mcL (1.6-8.9); Platelet Count 170 K/mcL (140-400); Red Blood Count 2.48 M/mcL (4.19-5.50); Red Cell Distribution Width 18.2 % (11.5-14.5); Segmented Neutrophils % 73.6 %; White Blood Count 8.6 K/mcL (4.3-11.1)
[2022-04-17 04:14] LABS: Calcium 7.3 mg/dL (8.6-10.3); Potassium 3.5 mEq/L (3.5-5.1)
[2022-04-17] MEDS: *HR* Heparin 5,000 UNIT/ML VIAL SQ SCH ×3 (05:30→22:05)
[2022-04-17] MEDS: Cefepime HCl 1,000 MG in 0.9 % Sodium Chloride Mini Bag 100 ML IVPB SCH (05:37)
[2022-04-17] MEDS: Aspirin 81 MG TAB.CHEW GTUBE SCH (07:46)
[2022-04-17] MEDS: Lactobacillus 1 EACH CAP.SPRINK GTUBE SCH ×2 (07:46→22:05)
[2022-04-17] MEDS ORDERED: Potassium Chloride Elixir 20 MEQ/15 ML UDC GTUBE ONE ×2 (07:47→15:09)
[2022-04-17] MEDS: *HR* Amiodarone 200 MG TABLET GTUBE SCH (07:49)
[2022-04-17] MEDS: Budesonide/Formoterol 80/4.5 1 PUFF INH IH SCH ×2 (09:37→22:08)
[2022-04-17] MEDS ORDERED: Potassium Chloride Elixir 20 MEQ/15 ML UDC ONE (15:46)
[2022-04-17] MEDS: Melatonin 3 MG TABLET GTUBE PRN (22:05)
[2022-04-18] MEDS: Metoclopramide 10 MG/10 ML UD.LIQ GTUBE SCH ×3 (04:51→17:37)
[2022-04-18] MEDS: Insulin LISPRO 300 UNITS/3 ML VIAL SUBQ SCH ×3 (04:52→17:38)
[2022-04-18] MEDS: Cefepime HCl 1,000 MG in 0.9 % Sodium Chloride Mini Bag 100 ML IVPB SCH (04:53)
[2022-04-18] MEDS: *HR* Heparin 5,000 UNIT/ML VIAL SQ SCH ×3 (04:55→22:03)
[2022-04-18 05:04] LABS: Basophils % 0.1 %; Eosinophils # 0.1 K/mcL (0.0-0.6); Eosinophils % 1.5 %; Hematocrit 25.5 % (37.5-50.1); Immature Granulocytes % 1.8 % (0-4); Lymphocytes # 1.5 K/mcL (0.6-4.6); Lymphocytes % 15.8 %; Mean Corpuscular HGB Conc 31.4 g/dL (31.6-35.5); Mean Corpuscular Hemoglobin 31.3 pg (28.0-33.3); Mean Corpuscular Volume 99.6 fL (83.0-100.0); Monocytes # 0.5 K/mcL (0.0-1.3); Monocytes % 4.9 %; Neutrophils # 7.2 K/mcL (1.6-8.9); Platelet Count 182 K/mcL (140-400); Red Blood Count 2.56 M/mcL (4.19-5.50); Red Cell Distribution Width 18.3 % (11.5-14.5); Segmented Neutrophils % 75.9 %; White Blood Count 9.5 K/mcL (4.3-11.1)
[2022-04-18 05:26] LABS: Calcium 7.4 mg/dL (8.6-10.3); Potassium 4.5 mEq/L (3.5-5.1)
[2022-04-18] MEDS: *HR* Amiodarone 200 MG TABLET GTUBE SCH (08:28)
[2022-04-18] MEDS: Aspirin 81 MG TAB.CHEW GTUBE SCH (08:32)
[2022-04-18] MEDS: Lactobacillus 1 EACH CAP.SPRINK GTUBE SCH ×2 (08:32→22:03)
[2022-04-18] MEDS: metroNIDAZOLE 500 MG TABLET GTUBE SCH ×2 (08:32→15:04)
[2022-04-18] MEDS: Budesonide/Formoterol 80/4.5 1 PUFF INH IH SCH ×2 (10:42→21:13)
[2022-04-18] MEDS: *HR* FentaNYL PATCH 25 MCG PATCH TD SCH (12:02)
[2022-04-18] MEDS ORDERED: E-Z-HD (BARIUM SULF) SUSPENSION PO ONE (16:37)
[2022-04-18] MEDS ORDERED: E-Z-PAQUE (BARIUM SULF) SUSP 1 BOTTLE PO ONE (16:37)
[2022-04-18] MEDS: Melatonin 3 MG TABLET GTUBE PRN (22:03)
[2022-04-19] MEDS: Metoclopramide 10 MG/10 ML UD.LIQ GTUBE SCH ×4 (00:33→17:54)
[2022-04-19] MEDS: metroNIDAZOLE 500 MG TABLET GTUBE SCH ×3 (00:33→17:54)
[2022-04-19] MEDS: Insulin LISPRO 300 UNITS/3 ML VIAL SUBQ SCH ×4 (00:33→17:54)
[2022-04-19 04:21] LABS: Basophils % 0.1 %; Eosinophils # 0.1 K/mcL (0.0-0.6); Eosinophils % 1.1 %; Hematocrit 24.6 % (37.5-50.1); Hemoglobin 7.8 g/dL (12.9-16.9); Immature Granulocytes % 1.3 % (0-4); Lymphocytes # 1.9 K/mcL (0.6-4.6); Lymphocytes % 19.3 %; Mean Corpuscular HGB Conc 31.7 g/dL (31.6-35.5); Mean Corpuscular Hemoglobin 32.4 pg (28.0-33.3); Mean Corpuscular Volume 102.1 fL (83.0-100.0); Monocytes # 0.5 K/mcL (0.0-1.3); Monocytes % 5.2 %; Platelet Count 169 K/mcL (140-400); Red Blood Count 2.41 M/mcL (4.19-5.50); Red Cell Distribution Width 18.3 % (11.5-14.5); White Blood Count 9.6 K/mcL (4.3-11.1)
[2022-04-19 04:34] LABS: Calcium 7.7 mg/dL (8.6-10.3); Magnesium 2.2 mg/dL (1.6-2.6); Phosphorous 2.1 mg/dL (2.7-4.5); Potassium 4.6 mEq/L (3.5-5.1)
[2022-04-19] MEDS: *HR* Heparin 5,000 UNIT/ML VIAL SQ SCH ×3 (06:40→22:08)
[2022-04-19] MEDS: Cefepime HCl 1,000 MG in 0.9 % Sodium Chloride Mini Bag 100 ML IVPB SCH (06:41)
[2022-04-19] MEDS: Aspirin 81 MG TAB.CHEW GTUBE SCH (08:55)
[2022-04-19] MEDS: Lactobacillus 1 EACH CAP.SPRINK GTUBE SCH ×2 (08:55→22:08)
[2022-04-19] MEDS: *HR* Amiodarone 200 MG TABLET GTUBE SCH (08:55)
[2022-04-19] MEDS: Budesonide/Formoterol 80/4.5 1 PUFF INH IH SCH ×2 (09:44→22:24)
[2022-04-20] MEDS: Metoclopramide 10 MG/10 ML UD.LIQ GTUBE SCH ×3 (00:37→11:27)
[2022-04-20] MEDS: Insulin LISPRO 300 UNITS/3 ML VIAL SUBQ SCH ×5 (00:38→23:55)
[2022-04-20] MEDS: metroNIDAZOLE 500 MG TABLET GTUBE SCH ×4 (00:38→23:56)
[2022-04-20 03:20] LABS: Basophils % 0.2 %; Eosinophils # 0.1 K/mcL (0.0-0.6); Eosinophils % 1.3 %; Hematocrit 25.8 % (37.5-50.1); Hemoglobin 8.1 g/dL (12.9-16.9); Immature Granulocytes % 1.4 % (0-4); Lymphocytes # 1.6 K/mcL (0.6-4.6); Lymphocytes % 16.6 %; Mean Corpuscular HGB Conc 31.4 g/dL (31.6-35.5); Mean Corpuscular Hemoglobin 31.6 pg (28.0-33.3); Mean Corpuscular Volume 100.8 fL (83.0-100.0); Mean Platelet Volume 10.7 fL (9.4-12.4); Monocytes # 0.5 K/mcL (0.0-1.3); Monocytes % 5.1 %; Neutrophils # 7.2 K/mcL (1.6-8.9); Platelet Count 156 K/mcL (140-400); Red Blood Count 2.56 M/mcL (4.19-5.50); Red Cell Distribution Width 18.8 % (11.5-14.5); Segmented Neutrophils % 75.4 %; White Blood Count 9.6 K/mcL (4.3-11.1)
[2022-04-20 03:37] LABS: Albumin 2.1 g/dL (3.5-5.7); Albumin/Globulin Ratio 0.9 (1.1-2.2); Bilirubin,Total 0.5 mg/dL (0.3-1.0); Calcium 7.7 mg/dL (8.6-10.3); Globulin 2.3 g/dL (2.4-3.5); Potassium 4.8 mEq/L (3.5-5.1); Total Protein 4.4 g/dL (6.4-8.9)
[2022-04-20] MEDS: *HR* Heparin 5,000 UNIT/ML VIAL SQ SCH ×3 (05:32→20:42)
[2022-04-20] MEDS: Cefepime HCl 1,000 MG in 0.9 % Sodium Chloride Mini Bag 100 ML IVPB SCH (05:33)
[2022-04-20] MEDS ORDERED: Heparin 1,000 UNITS/500 mL 500 ML ONE (08:29)
[2022-04-20] MEDS ORDERED: Lidocaine 1% 20 ML MDV ONE (08:29)
[2022-04-20] MEDS ORDERED: Iopamidol - 300 50 ML VIAL IVP ONE (09:36)
[2022-04-20] MEDS: Budesonide/Formoterol 80/4.5 1 PUFF INH IH SCH ×2 (10:01→22:41)
[2022-04-20] MEDS: Lactobacillus 1 EACH CAP.SPRINK GTUBE SCH ×2 (11:29→20:42)
[2022-04-20] MEDS: *HR* Amiodarone 200 MG TABLET GTUBE SCH (11:29)
[2022-04-20] MEDS: Aspirin 81 MG TAB.CHEW GTUBE SCH (11:29)
[2022-04-20] MEDS ORDERED: Albumin 25% 25gram/100mL 25 GM/100 ML IV.SOLN IVPB ONE ×2 (14:59→20:32)
[2022-04-20 16:08] LABS: ABG Base Excess -4 mEq/L (-2 to 3); ABG HCO3 22 mEq/L (21-27); ABG Oxygen Saturation 95 % (95-98); ABG PCO2 45 mmHg (35-45); ABG PO2 86 mmHg (85-104); ABG TCO2 23 mEq/L (20-26)
[2022-04-20] MEDS: 0.9 % Sodium Chloride 250 ML ONE ×2 (16:45→18:23)
[2022-04-20] MEDS: 0.9 % Sodium Chloride 250 ML IVC ONE ×2 (16:45→18:27)
[2022-04-20 20:44] LABS: INR 1.2; Prothrombin Time 13.1 Seconds (9.4-12.1)
[2022-04-21] MEDS ORDERED: Albumin 25% 25gram/100mL 25 GM/100 ML IV.SOLN IVPB ONE (02:52)
[2022-04-21] MEDS: Norepinephrine 4 MG/254 ML IV.SOLN IVC SCH ×2 (06:20→11:37)
[2022-04-21] MEDS: Insulin LISPRO 300 UNITS/3 ML VIAL SUBQ SCH ×2 (07:19→11:39)
[2022-04-21] MEDS: *HR* Heparin 5,000 UNIT/ML VIAL SQ SCH (07:19)
[2022-04-21] MEDS ORDERED: Morphine Sulfate 2 MG/ML SYRINGE IVP ONE (07:23)
[2022-04-21] MEDS ORDERED: Morphine Sulfate 2 MG/ML SYRINGE IVP PRN (07:23)
[2022-04-21] MEDS: *HR* HYDROmorphone (PF) 1 MG/ML SYRINGE IVP PRN ×6 (08:03→17:55)
[2022-04-21] MEDS: Budesonide/Formoterol 80/4.5 1 PUFF INH IH SCH ×2 (10:20→22:48)
[2022-04-21] MEDS: Cefepime HCl 1,000 MG in 0.9 % Sodium Chloride Mini Bag 100 ML IVPB SCH (11:37)
[2022-04-21] MEDS: *HR* Amiodarone 200 MG TABLET GTUBE SCH (11:38)
[2022-04-21] MEDS: Aspirin 81 MG TAB.CHEW GTUBE SCH (11:38)
[2022-04-21] MEDS: metroNIDAZOLE 500 MG TABLET GTUBE SCH (11:38)
[2022-04-21] MEDS: Lactobacillus 1 EACH CAP.SPRINK GTUBE SCH (11:39)
[2022-04-21] MEDS ORDERED: *HR* FentaNYL PATCH 50 MCG PATCH TD SCH (11:41)
[2022-04-21] MEDS ORDERED: *HR* LORazepam 2 MG/ML VIAL IVP PRN ×2 (11:43→13:32)
[2022-04-21] MEDS ORDERED: Atropine Sulfate 1% 40 DROP/2 ML BOTTLE SL PRN (12:02)
[2022-04-21] MEDS: *HR* FentaNYL PATCH 25 MCG PATCH TD SCH (14:16)
[2022-04-21] MEDS ORDERED: Ondansetron 4 MG/2 ML VIAL IVP PRN (14:22)
[2022-04-21] MEDS: Atropine Sulfate 1% 40 DROP/2 ML BOTTLE SL PRN (15:00)
[2022-04-21] MEDS ORDERED: Scopolamine Patch 1.5 MG PATCH.TD72 TD SCH (16:00)
[2022-04-22] MEDS: Atropine Sulfate 1% 40 DROP/2 ML BOTTLE SL PRN ×4 (07:37→22:51)
[2022-04-22] MEDS: *HR* HYDROmorphone (PF) 1 MG/ML SYRINGE IVP PRN ×3 (07:38→17:49)
[2022-04-22] MEDS: Budesonide/Formoterol 80/4.5 1 PUFF INH IH SCH ×2 (09:50→22:43)
[2022-04-23] MEDS: *HR* HYDROmorphone (PF) 1 MG/ML SYRINGE IVP PRN (00:29)
[2022-04-23 07:08] VITALS: BP 137/74; PULSE 63; TEMP 97.7; O2SAT 100
[2022-04-23] MEDS ORDERED: *HR* HYDROmorphone (PF) 1 MG/ML SYRINGE IVP PRN (09:13)
[2022-04-23] MEDS ORDERED: *HR* LORazepam 2 MG/ML VIAL IVP PRN (09:24)
[2022-04-23] MEDS ORDERED: Haloperidol Lactate 5 MG/ML VIAL IVP PRN (09:26)
[2022-04-23] MEDS: Budesonide/Formoterol 80/4.5 1 PUFF INH IH SCH (11:01)
[2022-04-24] MEDS ORDERED: *HR* FentaNYL PATCH 25 MCG PATCH TD SCH (11:41)
== END 2022-04-23 10:56 | disposition expired | DRG 853 ==
LOC: 2ANU → SUATTDRO 03-16 10:32 → 2ANU 03-30 15:33 → 2NNU 03-30 21:26 → 2NENU 04-04 01:43 → ICNU 04-21 05:08 → 2ANU 04-21 14:10
PROVIDERS: ADMIT Internal Medicine; ATTEND Internal Medicine
PROC: IRPERMA (~2022-03-15)